=== PATIENT | male | born 1990 | race Native Hawaiian/Other Pacific Islander ===

== ENCOUNTER 2022-08-29 16:46 | Emergency (ER) | payer SELFPAY ==
[2022-08-29] VITALS (7 sets, daily range): BP systolic 127; BP diastolic 99; PULSE 58–68; RESP 18; TEMP 36.2; O2SAT 99
--- NOTE | 2022-08-29 16:45 | RT.EKG_ITS ---
APPROVED REPORT Exam: Resting ECG Reason for Exam: passing out Patient Location: E HR:58 bpm ECG Measurements Heart Rate 58 AXIS WA 156 P 40 QRSd 86 QRS 36 QT 398 T 16 QTc 393 Conclusion Sinus bradycardia...rate< 60
--- NOTE | 2022-08-29 17:00 | DI.RAD_ITS ---
Exam(s) XR CHEST 2V PA LATERAL EXAM: XR CHEST 2V PA LATERAL CLINICAL HISTORY: shortness. TECHNIQUE: 2D digital imaging was performed. COMPARISON: No exams were available for comparison FINDINGS: 2 views: Heart size is normal. The mediastinum is not widened. Lungs are clear. No infiltrates nor pleural effusions. IMPRESSION: No acute pulmonary findings. DATA REPOSITORY: RADIATION DOSE DELIVERED:
[2022-08-29 17:27] LABS: Abs Immature Grans 0.03 10^3/uL (0.0-0.06); Absolute Basophil Count 0.05 10^3/uL (0.0-0.2); Absolute Lymphocyte Count 2.92 10^3/uL (1.2-3.4); Absolute Neutrophil Count 5.94 10^3/uL (1.2-6.7); Basophils % 0.5; HCT 43.9 % (40.0-50.0); HGB 14.9 g/dL (13.5-17.5); Immature Grans % 0.3; Lymphocytes % 29.7; MCH 30.1 pg (27.0-33.0); MCHC 33.9 % (32.0-36.0); MCV 89 fL (80-95); MPV 8.9 fL (8.0-11.0); Monocytes % 6.1; Neutrophils % 60.4; Platelet Count 278 10^3/uL (130-400); RBC 4.95 10^6/uL (4.36-5.78); RDW 13.6 % (11.8-14.1); RDW-SD 44.4 fL; WBC 9.84 10^3/uL (4.4-10.8)
[2022-08-29 17:51] LABS: ALT 30 U/L (16-63); AST 24 U/L (15-37); Albumin 3.8 g/dL (3.4-5.0); Alkaline Phosphatase 80 U/L (46-116); Anion Gap 6.6 mmol/L (3-11); BUN 10 mg/dL (7-18); Bilirubin, Total 0.6 mg/dL (0.2-1.0); CO2 27.4 mmol/L (21.0-32.0); CREATININE 0.8 mg/dL (0.70-1.30); Chloride 106 mmol/L (98-107); Estimated GFR 121.34 (mL/min/1.73m2); Glucose 89 mg/dL (74-106); Magnesium 2.1 mg/dL (1.8-2.4); Potassium 3.9 mmol/L (3.5-5.1); Sodium 140 mmol/L (136-145); TSH (W/Ref FT4) 0.65 uIU/mL (0.36-3.74); Total Protein 8.4 g/dL (6.4-8.2); Troponin I < 50 ng/L (<or=60)
[2022-08-29 17:58] LABS: D-Dimer 281 ng/mlFEU (<500)
--- NOTE | 2022-08-29 18:07 | DI.VRAD_ITS ---
PROCEDURE INFORMATION: Exam: XR Chest Exam date and time: 08/29/2022 5:44 PM Age: 32 years old Clinical indication: Shortness of breath TECHNIQUE: Imaging protocol: Radiologic exam of the chest. Views: 2 views. COMPARISON: No relevant prior studies available. FINDINGS: Lungs: Unremarkable. No consolidation. Pleural spaces: Unremarkable. No pleural effusion. No pneumothorax. Heart/Mediastinum: Unremarkable. No cardiomegaly. Bones/joints: Unremarkable. IMPRESSION: No acute findings. Dictated and Authenticated by: Valdo Esquivel MD. Ordering:JEFF Weinberg MD
--- NOTE | 2022-08-29 19:19 | ED.GENADUL_ITS ---
Discharge Plan Disposition Patient Disposition: Home Discharge Details Clinical Impression: Syncope, Abscess Primary Care Provider: None,None ED Provider: Sultana Barajas Home Meds and New Rx's Prescriptions: New doxycycline hyclate 100 mg capsule 100 mg PO Q12H 10 Days Qty: 20 0RF Continued albuterol sulfate 90 mcg/actuation Hfa Aerosol Inhaler 2 inh INHALATION PRN PRN Discharge Instructions Instructions: Syncope (ED), Abscess (ED) Additional Instructions: Please follow-up with a doctor at your earliest ability Take antibiotic as prescribed for the abscesses, this will also protect you from Lyme disease Return with spreading redness, fever, worsening pain, chest pain, shortness of breath just I think that probably Discharge Data Discharge Date/Time-TO BE ENTERED AT DEPARTURE: 08/29/22 18:28 Medical Decision Making 32-year-old male who presents status post syncopal event EKG does not show significant acute abnormality, no QTc prolongation, negative troponin, negative D-dimer, labs within normal limits Afebrile and nontoxic Chest x-ray without acute abnormality Reports symptomatic improvement We will place on doxycycline for tick exposure and numerous abscesses Denies IV drug use Observed for approximately 3 hours without obvious evidence of dysrhythmia Phillips syncope places patient at low risk HPI General Date/Time Provider Initiated Documentation: 08/29/22 17:06 . HPI Narrative: This 32-year-old male with history of asthma presents with report of likely syncopal event. He was reportedly removing a tick from his thigh and the next thing he remembered he was on the ground. He was standing when the event occurred. He denies any reported injuries from the event. Denies history of similar symptoms in the past. Denies any vision change. He had tunnel vision prior to the onset of symptoms. She denies any palpitations. denies any neck pain. Unsure as to how long the tick was attached. Denies illicit drug use today. Denies any seizure-like activity. Denies alcohol consumption. Related Data Home Medications Medication Instructions Recorded Confirmed albuterol sulfate 90 mcg/actuation 2 inh inhalation PRN PRN 08/29/22 08/29/22 aerosol inhaler doxycycline hyclate 100 mg capsule 100 mg PO Q12H 10 days #20 caps 08/29/22 Previous Rx's Medication Instructions Recorded doxycycline hyclate 100 mg capsule 100 mg PO Q12H 10 days #20 caps 08/29/22 Allergies Allergy/AdvReac Type Severity Reaction Status Date / Time No Known Allergies Allergy Unverified 08/29/22 16:49 General Stated Complaint: Dizzy/Sync OSMANY: 3 PFSH All Active Problems (Updated 08/29/22 @ 18:24 by EPIFANIO Charlton) Syncope (Chronic) Abscess (Acute) Social History Smoking/Tobacco Use Status: Current every day Tobacco Type: cigarettes Years smoked: 21 Smoking risk assessment performed?: Yes Alcohol Intake: former Drug use: Daily Substance use type: marijuana and crack/cocaine Details: marijiana: every day cocaine: 3x/week Do you feel safe at home: Yes Do you feel safe in your relationship?: Yes Exam Narrative Exam Narrative: Alert and oriented x4, no visible sign of trauma, pupils equal round reactive to light and accommodation No midline neck tenderness, no carotid bruit or pulsatile mass, lungs clear to auscultation bilaterally, cardiac rate rhythm regular, no murmur rub No pallor, fully alert and oriented x4, cranial nerves II through XII intact, ambulatory steady gait, strength and sensation intact distally Course Vital Signs Vital signs: Vital Signs Temperature 36.2 C L 08/29/22 16:45 Pulse 59 L 08/29/22 16:45 Respiratory Rate 18 08/29/22 16:45 Blood Pressure 127/99 H 08/29/22 16:45 Pulse Oximetry 99 08/29/22 16:45 Temperature 36.2 C L 08/29/22 16:45 Temperature Source Skin 08/29/22 16:45 Pulse 59 L 08/29/22 16:45 Pulse 58 L 08/29/22 18:20 Respiratory Rate 18 08/29/22 16:57 Respiratory Effort Normal 08/29/22 16:57 Respiratory Depth Normal 08/29/22 16:57 Respiratory Pattern Normal 08/29/22 16:57 Blood Pressure 127/99 H 08/29/22 16:45 Blood Pressure Position Sitting 08/29/22 16:45 Pulse Oximetry 99 08/29/22 16:45 Oxygen Delivery Method Room Air 08/29/22 16:45 Oxygen Flow Rate 0 08/29/22 16:45 Lab/Test Results Lab/Test Results: Laboratory Tests Range/Units 08/29/22 08/29/22 08/29/22 17:21 17:21 17:21 WBC (4.4-10.8) 10^3/uL 9.84 RBC (4.36-5.78) 10^6/uL 4.95 Hgb (13.5-17.5) g/dL 14.9 Hct (40.0-50.0) % 43.9 MCV (80-95) fL 89 MCH (27.0-33.0) pg 30.1 MCHC (32.0-36.0) % 33.9 RDW (11.8-14.1) % 13.6 Plt Count (130-400) 10^3/uL 278 MPV (8.0-11.0) fL 8.9 Immature Gran % 0.3 Neutrophils % 60.4 Lymphocytes % 29.7 Monocytes % 6.1 Eosinophils % 3.0 Basophils % 0.5 Nucleated RBC % (0.0-0.3) % 0.0 Absolute Neutrophils (1.2-6.7) 10^3/uL 5.94 Absolute Lymphocytes (1.2-3.4) 10^3/uL 2.92 Absolute Monocytes (0.1-0.8) 10^3/uL 0.60 Absolute Eosinophils (0.0-0.7) 10^3/uL 0.30 Absolute Basophils (0.0-0.2) 10^3/uL 0.05 D-Dimer (<500) ng/mlFEU 281 Sodium (136-145) mmol/L 140 Potassium (3.5-5.1) mmol/L 3.9 Chloride (98-107) mmol/L 106 Carbon Dioxide (21.0-32.0) mmol/L 27.4 Anion Gap (3-11) mmol/L 6.6 BUN (7-18) mg/dL 10 Creatinine (0.70-1.30) mg/dL 0.8 Est GFR (CKD-EPI 2020) (mL/min/1.73m2) 121.34 Glucose (74-106) mg/dL 89 Calcium (8.5-10.1) mg/dL 9.0 Magnesium (1.8-2.4) mg/dL 2.1 Total Bilirubin (0.2-1.0) mg/dL 0.6 AST (15-37) U/L 24 ALT (16-63) U/L 30 Alkaline Phosphatase (46-116) U/L 80 Troponin I (<or=60) ng/L < 50 Total Protein (6.4-8.2) g/dL 8.4 H Albumin (3.4-5.0) g/dL 3.8 TSH (0.36-3.74) uIU/mL 0.65 Range/Units 08/29/22 20:08 WBC (4.4-10.8) 10^3/uL RBC (4.36-5.78) 10^6/uL Hgb (13.5-17.5) g/dL Hct (40.0-50.0) % MCV (80-95) fL MCH (27.0-33.0) pg MCHC (32.0-36.0) % RDW (11.8-14.1) % Plt Count (130-400) 10^3/uL MPV (8.0-11.0) fL Immature Gran % Neutrophils % Lymphocytes % Monocytes % Eosinophils % Basophils % Nucleated RBC % (0.0-0.3) % Absolute Neutrophils (1.2-6.7) 10^3/uL Absolute Lymphocytes (1.2-3.4) 10^3/uL Absolute Monocytes (0.1-0.8) 10^3/uL Absolute Eosinophils (0.0-0.7) 10^3/uL Absolute Basophils (0.0-0.2) 10^3/uL D-Dimer (<500) ng/mlFEU Sodium (136-145) mmol/L Potassium (3.5-5.1) mmol/L Chloride (98-107) mmol/L Carbon Dioxide (21.0-32.0) mmol/L Anion Gap (3-11) mmol/L BUN (7-18) mg/dL Creatinine (0.70-1.30) mg/dL Est GFR (CKD-EPI 2020) (mL/min/1.73m2) Glucose (74-106) mg/dL Calcium (8.5-10.1) mg/dL Magnesium (1.8-2.4) mg/dL Total Bilirubin (0.2-1.0) mg/dL AST (15-37) U/L ALT (16-63) U/L Alkaline Phosphatase (46-116) U/L Troponin I (<or=60) ng/L Cancelled Total Protein (6.4-8.2) g/dL Albumin (3.4-5.0) g/dL TSH (0.36-3.74) uIU/mL
== END 2022-08-29 18:28 | disposition home or self-care (01) ==
PROVIDERS: Emergency Provider Physician Assistant
DX: R55 Syncope and collapse (principal); L02.419 Cutaneous abscess of limb, unspecified; J45.909 Unspecified asthma, uncomplicated
CPT/HCPCS: 80053; 93005; 99283; 71046; 83735; 84443; 84484; 85025; 85379; 93010; 99284

== ENCOUNTER 2022-09-13 04:07 | Emergency (ER) | payer SELFPAY ==
[2022-09-13] VITALS (10 sets, daily range): BP systolic 118–183; BP diastolic 50–142; PULSE 67–84; RESP 12–22; O2SAT 97–100
--- NOTE | 2022-09-13 04:00 | RT.EKG_ITS ---
APPROVED REPORT Exam: Resting ECG Reason for Exam: SOB Patient Location: E HR:75 bpm ECG Measurements Heart Rate 75 AXIS [place] 142 P 38 QRSd 89 QRS 44 QT 366 T 11 QTc 408 Conclusion Sinus rhythm...normal P axis, V-rate 60- 99. Sinus. Normal axis. No STEMI. I have reviewed and interpreted ECG and agree with software generated interpretation.
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
--- NOTE | 2022-09-13 04:30 | DI.CT_ITS ---
Exam(s) CT HEAD CERVICAL SPINE WO EXAM: CT HEAD CERVICAL SPINE WO CLINICAL HISTORY: fall with head injury, r/o intracranial inj/fx. TECHNIQUE: Imaging Protocol: Axial computed tomography images with coronal and sagittal reformatted images were created and reviewed COMPARISON: No exams were available for comparison FINDINGS: CT Head: Ventricles and Extra axial spaces: Normal in size and morphology for the patient's age. Hemorrhage: None. Cerebral parenchyma: Normal. Midline shift: None. Brainstem/Cerebellum: Normal. Calvarium: Normal. Visualized Paranasal sinuses/Mastoids: Clear. Soft Tissues: Unremarkable. CT Cervical Spine: Bones: No acute fracture or subluxation. 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 There is reversal of the normal cervical lordosis which may represent patient positioning or muscle s pasm. Status post mandibular fixation. Soft Tissues: Unremarkable. Lung Apices: Clear. IMPRESSION: 1. No acute intracranial process. 2. No acute fracture or subluxation in the cervical spine. RADIATION DOSE DELIVERED: 1,671mGy.cm Total DLP DATA REPOSITORY: All CT scans at this facility are submitted to the National Radiology Data Registry (NRDR) Dose Index Registry (DIR) with the [employer] ([employer]). RADIATION OPTIMIZATION: All CT scans at this facility use at least one of these dose optimization te chniques: automated exposure control; mA and/or kV adjustment per patient size (includes targeted exa ms where dose is matched to clinical indication); or iterative reconstruction.
--- NOTE | 2022-09-13 04:30 | DI.CT_ITS ---
Exam(s) CT CHEST/ABD/PEL W CT THORACIC LUMBAR SPINE REC EXAM: CT CHEST/ABD/PEL W and CT thoracic and lumbar spine recons CLINICAL HISTORY: fall, R rib inj/r/o fx/liver injury TECHNIQUE: Imaging Protocol: Axial computed tomography images with coronal and sagittal reformatted images were created and reviewed CONTRAST MATERIAL: Intravenous: Omnipaque 350 contrast volume:100 mL Oral: No COMPARISON: There are no priors for comparison. FINDINGS: CHEST: Tracheobronchial tree: Patent where visualized. There is a small right tracheal diverticulum. Pulmonary parenchyma: No consolidation or dominant measurable mass. No architectural distortion. Visualized thyroid gland: Unremarkable. Mediastinum and Ellen: No dominant adenopathy or fluid collection. The esophagus is unremarkable. Pleura: No effusion or pneumothorax. Heart: The heart is not dilated. No coronary artery calcifications are seen. No pericardial effusion. Pulmonary arteries: No large central pulmonary embolus is seen. There is poor opacification of the s egmental and subsegmental pulmonary arteries. Aorta: Thoracic aorta non-dilated. No evidence of thoracic aortic injury. Lymph nodes: Within normal limits. Soft tissues: Mild gynecomastia. Bones:Within normal limits for the patient's age. CT thoracic spine recons: Unremarkable. No definite acute fracture or subluxation is seen in the tho racic spine. ABDOMEN: Liver: Normal density. No measurable mass. Portal, Superior Mesenteric, and Splenic Veins: Unremarkable. Gallbladder and Biliary Tract: No radiodense calculus or dilation. Pancreas: Normal density, no abnormal calcifications or inflammatory process. Spleen: Normal. Adrenals: No masses seen. Kidneys: Normal size, contour and axis. No radiodense stones or obstructive uropathy. No masses seen. Abdominal Aorta: Abdominal portion non-dilated. Bowel: No obstruction or bowel wall thickening. No evidence of appendicitis. Peritoneal Cavity: No ascites, collection or mesenteric inflammatory response. No free air. Lymph Nodes: Within normal limits. Bones: Within normal limits for the patient's age. Soft Tissues: Small fat containing umbilical hernia. CT lumbar spine recons: No acute fracture or subluxation is present. Discal calcification is seen at L4-L5. Degenerative changes are seen at the L4-5 disc level. PELVIS: Bladder: Symmetric distention, no gross wall thickening. Reproductive Organs: Unremarkable as visualized. Lymph Nodes: Within normal limits. Bones: Within normal limits. IMPRESSION: 1. Unremarkable CT scan of the abdomen and pelvis. 2. Unremarkable CT scan of the chest. 3. No acute fracture or subluxation is seen in the thoracic or lumbar spine. RADIATION DOSE DELIVERED: Total DLP DATA REPOSITORY: All CT scans at this facility are submitted to the National Radiology Data Registry (NRDR) Dose Index Registry (DIR) with the [employer] (ACR). RADIATION OPTIMIZATION: All CT scans at this facility use at least one of these dose optimization te chniques: automated exposure control; mA and/or kV adjustment per patient size (includes targeted exa ms where dose is matched to clinical indication); or iterative reconstruction.
[2022-09-13] MEDS: Normal Saline 1,000 ML 1000 ML IV (04:37)
[2022-09-13] MEDS: ACETAMINOPHEN 1,000 MG/100 ML BTL 400 MG IVPB (04:38)
[2022-09-13 04:52] LABS: Abs Immature Grans 0.06 10^3/uL (0.0-0.06); Absolute Basophil Count 0.06 10^3/uL (0.0-0.2); Absolute Lymphocyte Count 4.96 10^3/uL (1.2-3.4); Absolute Monocyte Count 0.95 10^3/uL (0.1-0.8); Basophils % 0.3; Eosinophils % 1.1; HCT 47.1 % (40.0-50.0); HGB 16.2 g/dL (13.5-17.5); Immature Grans % 0.3; Lymphocytes % 24.5; MCH 30.1 pg (27.0-33.0); MCHC 34.4 % (32.0-36.0); MCV 88 fL (80-95); MPV 9.3 fL (8.0-11.0); Monocytes % 4.7; Neutrophils % 69.1; Platelet Count 299 10^3/uL (130-400); RBC 5.38 10^6/uL (4.36-5.78); RDW 13.2 % (11.8-14.1); RDW-SD 42.6 fL; WBC 20.26 10^3/uL (4.4-10.8)
[2022-09-13 04:54] LABS: Absolute Eosinophil Count 0.22 10^3/uL (0.0-0.7)
[2022-09-13] MEDS: Normal Saline - Diluent 50 ML VIAL IJ (05:10)
[2022-09-13] MEDS: Omnipaque 350 MG/ML 100 ML BTL IJ (05:10)
[2022-09-13 05:15] LABS: ALT 27 U/L (16-63); AST 22 U/L (15-37); Albumin 4.3 g/dL (3.4-5.0); Alkaline Phosphatase 94 U/L (46-116); BUN 11 mg/dL (7-18); Bilirubin, Total 0.6 mg/dL (0.2-1.0); Calcium 9.4 mg/dL (8.5-10.1); Chloride 105 mmol/L (98-107); Estimated GFR 103.19 (mL/min/1.73m2); Glucose 93 mg/dL (74-106); Potassium 3.6 mmol/L (3.5-5.1); Sodium 141 mmol/L (136-145); Total Protein 9.5 g/dL (6.4-8.2); Troponin I < 50 ng/L (<or=60)
--- NOTE | 2022-09-13 05:25 | DI.VRAD_ITS ---
PROCEDURE INFORMATION: Exam: CT Head Without Contrast Exam date and time: 09/13/2022 4:51 AM Age: 32 years old Clinical indication: Injury or trauma; Other: Fall with head injury, R/O intracranial inj/fx TECHNIQUE: Imaging protocol: Computed tomography of the head without contrast. COMPARISON: No relevant prior studies available. FINDINGS: Brain: No intracranial hemorrhage appreciated. No significant focal mass effect or significant midline shift. Cerebral ventricles: No disproportionate ventriculomegaly. Paranasal sinuses: No air-fluid levels seen. Mastoid air cells: No mastoid effusion. Bones/joints: No acute cranial vault fracture seen. Soft tissues: No acute findings. IMPRESSION: 1. No acute intracranial abnormality is appreciated. 2. Additional studies dictated separately. PROCEDURE INFORMATION: Exam: CT Cervical Spine Without Contrast Exam date and time: 09/13/2022 4:51 AM Age: 32 years old Clinical indication: Injury or trauma; Other: Fall with head injury, R/O intracranial inj/fx TECHNIQUE: Imaging protocol: Computed tomography of the cervical spine without contrast. COMPARISON: No relevant prior studies are available for comparison. FINDINGS: Bones/joints: No acute cervical spine fracture identified. 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 Reversal of the normal cervical lordosis may reflect positioning or muscle spasm; correlate clinically. Status post internal mandibular fixation. Lungs: No acute findings. Lymph nodes: Bilateral cervical lymph nodes. Soft tissues: See Bones/joints finding. IMPRESSION: 1. No acute osseous injury appreciated in the cervical spine. 2. Additional studies dictated separately. Dictated and Authenticated by: Tona Perales MD. Ordering:CHANDANA Majano MD
--- NOTE | 2022-09-13 05:35 | DI.VRAD_ITS ---
PROCEDURE INFORMATION: Exam: CT Chest With Contrast; Diagnostic Exam date and time: 09/13/2022 4:58 AM Age: 32 years old Clinical indication: Pain; Other: Fall, R rib inj/r/o fx/liver injury TECHNIQUE: Imaging protocol: Diagnostic computed tomography of the chest with contrast. Contrast material: OMNIPAQUE 350; Contrast volume: 100 ml; Contrast route: INTRAVENOUS (IV); COMPARISON: CR XR CHEST 2V PA LATERAL 08/29/2022 5:44 PM FINDINGS: Trachea: 7 mm right posterior tracheal diverticulum, image 76 of series 8. Lungs: No pulmonary laceration, contusion, or consolidation. Pleural spaces: No pleural effusion or pneumothorax. Heart: Normal sized heart. Lymph nodes: No pathologically enlarged mediastinal or hilar lymph nodes. Vasculature: No thoracic aortic aneurysm or dissection. Limited pulmonary artery enhancement with a density of only 148 Hounsfield units obtained over the pulmonary trunk. Within the limits of the exam, no pulmonary embolism identified. Small and distal pulmonary arteries partially obscured by artifact, not well enhanced, and not well evaluated. Bones/joints: No acute fracture seen among the bones of the chest. Soft tissues: No gross soft tissue mass or fluid collection seen in the chest wall. IMPRESSION: No acute visceral or bony injury seen in the chest. PROCEDURE INFORMATION: Exam: CT Abdomen And Pelvis With Contrast Exam date and time: 09/13/2022 4:58 AM Age: 32 years old Clinical indication: Pain; Other: Fall, R rib inj/r/o fx/liver injury TECHNIQUE: Imaging protocol: Computed tomography of the abdomen and pelvis with contrast. Contrast material: OMNIPAQUE 350; Contrast volume: 100 ml; Contrast route: INTRAVENOUS (IV); COMPARISON: CR XR CHEST 2V PA LATERAL 08/29/2022 5:44 PM FINDINGS: Liver: Normal appearing liver. Gallbladder and bile ducts: Normal appearing gallbladder. No calcified gallstones. No biliary dilatation. Pancreas: Normal appearing pancreas. Spleen: Normal appearing spleen. Adrenal glands: Normal appearing adrenal glands. Kidneys and ureters: Normal appearing kidneys. No hydronephrosis. Stomach and bowel: No oral contrast. Stomach partially decompressed. No small bowel dilatation to suggest obstruction. Normal-appearing colon. No evidence of diverticulitis or colitis. Appendix: Normal appendix. Intraperitoneal space: No gross ascites or free air. Vasculature: Normal caliber abdominal aorta. Lymph nodes: Scattered small mesenteric lymph nodes, nonspecific. Clustered small bilateral groin nodes, nonspecific. Urinary bladder: Normal appearing urinary bladder. Reproductive: Normal-appearing prostate gland and seminal vesicles. Bones/joints: No acute fracture seen among the bones of the abdomen or pelvis. Soft tissues: Small fat containing ventral hernia at the umbilicus. IMPRESSION: No acute visceral or bony injury seen in the abdomen or pelvis. Dictated and Authenticated by: Reyes Lorenz MD. Ordering:CHANDANA Majano MD
--- NOTE | 2022-09-13 05:44 | DI.VRAD_ITS ---
PROCEDURE INFORMATION: Exam: CT Thoracic Spine Without Contrast Exam date and time: 09/13/2022 4:58 AM Age: 32 years old Clinical indication: Injury or trauma; Fall; Blunt trauma (contusions or hematomas); Other: R/O FX TECHNIQUE: Imaging protocol: Computed tomography of the thoracic spine without contrast. COMPARISON: CT HEAD CERVICAL SPINE WO 09/13/2022 4:51 AM FINDINGS: Bones/joints: No thoracic fracture or malalignment is seen. No thoracic spinal stenosis is demonstrated. Soft tissues: No gross superficial soft tissue mass or fluid collection is seen in the thoracic region. Tracheobronchial tree: 7 mm right posterior tracheal diverticulum redemonstrated. IMPRESSION: No acute fracture or malalignment seen in the thoracic spine. PROCEDURE INFORMATION: Exam: CT Lumbar Spine Without Contrast Exam date and time: 09/13/2022 4:58 AM Age: 32 years old Clinical indication: Injury or trauma; Fall; Blunt trauma (contusions or hematomas); Other: R/O FX TECHNIQUE: Imaging protocol: Computed tomography of the lumbar spine without contrast. COMPARISON: No relevant prior studies available. FINDINGS: Bones/joints: No acute lumbar fracture or malalignment is seen. There is a well corticated defect through the left L4 transverse process with an appearance suspicious for an old fracture or an unusual developmental appearance. L1-L2: No focal disc herniation. No significant central canal narrowing or neural foraminal narrowing. L2-L3: Disc height preserved. No focal disc herniation. No significant central canal narrowing or neural foraminal narrowing. L3-L4: Disc height preserved. No focal disc herniation. No significant central canal narrowing or neural foraminal narrowing. L4-L5: Loss of disc height with a large left lateral disc bulge with calcification along the disc margin and associated osteophytic ridging. No significant central canal narrowing. Moderate right-sided foraminal narrowing. Moderate-severe left-sided foraminal narrowing with disc material abutting the left L4 nerve root. L5-S1: Disc height preserved. No focal disc herniation. No significant central canal narrowing. Moderate bilateral foraminal narrowing. Soft tissues: Unremarkable. IMPRESSION: No acute lumbar fracture or malalignment is seen. Dictated and Authenticated by: Reyes Lorenz MD. Ordering:CHANDANA Majano MD
--- NOTE | 2022-09-13 05:48 | NUR.NOTE ---
Pt placed on care management referral list to establish care and f/u for neck and shoulder pain per Gretel Aguillon
[2022-09-13 05:50] LABS: Bilirubin Negative (Negative); Blood Negative (Negative); Clarity Clear (Clear); Glucose Negative (Negative); Ketones Negative (Negative); Leukocyte Esterase Negative (Negative); Nitrite Negative (Negative); Specific Gravity 1.015 (1.005-1.025); Urobilinogen 0.2 mg/dL (Up to 0.2)
[2022-09-13 06:00] LABS: *AMPHETAMINES SCREEN URINE Negative (Negative); *BARBITURATES SCREEN URINE Negative (Negative); *BENZODIAZEPINES SCREEN URINE Negative (Negative); Cannabinoids THC Positive (Negative); Cocaine Screen,Urine Positive (Negative); METHADONE URINE SCREEN Negative (Negative); OPIATES URINE SCREEN Negative (Negative)
[2022-09-13 06:04] LABS: Tricyclic Antidepressants Negative (Negative)
[2022-09-13] MEDS: LORazepam 0.5 MG TAB 1 MG PO (06:23)
[2022-09-13] MEDS: Ondansetron O.D.T. 4 MG TABEF, 3 TABS/BTL PO (06:31)
== END 2022-09-13 06:29 | disposition home or self-care (01) ==
PROVIDERS: Emergency Provider Physician Assistant
DX: F14.10 Cocaine abuse, uncomplicated (principal); R11.2 Nausea with vomiting, unspecified; R56.9 Unspecified convulsions; R06.02 Shortness of breath; D72.829 Elevated white blood cell count, unspecified; S00.511A Abrasion of lip, initial encounter; Y04.1XXA Assault by human bite, initial encounter; F17.210 Nicotine dependence, cigarettes, uncomplicated; Z23 Encounter for immunization
CPT/HCPCS: 36415; 74177; 80053; 80307; 90471; 93005; 96365; 96375; 99285; 70450; 71260; 72125; 81003; 83735; 84484; 85025; 93010; 99284; J0131; J3490

== ENCOUNTER 2022-09-28 11:19 | Emergency (ER) | payer SELFPAY ==
[2022-09-28 11:27] VITALS: BP 122/81; PULSE 71; RESP 20; TEMP 37.2; O2SAT 98
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
--- NOTE | 2022-09-28 12:18 | NUR.NOTE ---
Nursing Note: care management referral for [facility] for new pt appt for med refill
[2022-09-28] MEDS: Albuterol HFA 8 GM 60 PUFF INH IH (12:24)
== END 2022-09-28 12:26 | disposition home or self-care (01) ==
PROVIDERS: Emergency Provider Physician Assistant
DX: Z76.0 Encounter for issue of repeat prescription (principal); R56.9 Unspecified convulsions; F41.9 Anxiety disorder, unspecified; F32.9 Major depressive disorder, single episode, unspecified; F43.10 Post-traumatic stress disorder, unspecified; J45.909 Unspecified asthma, uncomplicated; Z91.138 Patient's unintentional underdosing of medication regimen for other reason
CPT/HCPCS: 99281; 99283; 99282

== ENCOUNTER 2022-10-13 12:05 | Emergency (ER) | payer SELFPAY ==
[2022-10-13 12:14] VITALS: BP 137/83; PULSE 72; RESP 18; O2SAT 98
--- NOTE | 2022-10-13 14:15 | W.EDPROG ---
Date of service: 10/13/22 Time of Service: 14:15 Medical Decision Making I went to perform initial evaluation on this patient and he was not in assigned room. Patients who were in the waiting room nearby noted he had eloped stating time is money. I did not evaluate this patient. Discharge Plan Discharge Details Chief Complaint: Nausea/Vomit/Diar Primary Care Provider: Mary,Local ED Provider: Alexander Sandhu Home Meds and New Rx's Prescriptions: No Action alprazolam [Xanax] 2 mg Tablet 2 mg PO QHS divalproex [Depakote] 500 mg tablet,delayed release (DR/EC) 500 mg PO TID Qty: 90 0RF albuterol sulfate 90 mcg/actuation Hfa Aerosol Inhaler 2 inh INHALATION PRN PRN divalproex [Depakote] 500 mg tablet,delayed release (DR/EC) 500 mg PO BID Qty: 60 0RF albuterol sulfate 90 mcg/actuation HFA aerosol inhaler 2 puff inhalation Q6H PRN (Reason: shortness of breath or wheezing) Qty: 8.5 0RF
--- NOTE | 2022-10-13 14:16 | NUR.NOTE ---
Patient left without being seen, he stated that time was money to the registration office before leaving. CLB
--- NOTE | 2022-10-13 14:16 | NUR.NOTE ---
Nursing Note: Access called stating patient took his bracelet off and to tell the doctor he was leaving.
== END 2022-10-13 14:16 | disposition left against medical advice (07) ==
PROVIDERS: Emergency Provider Student in an Organized Health Care Education/Training Program
DX: R11.2 Nausea with vomiting, unspecified (principal); Z53.21 Procedure and treatment not carried out due to patient leaving prior to being seen by health care provider
CPT/HCPCS: 36416; 82962; 99282

== ENCOUNTER 2022-11-05 12:02 | Inpatient (IN) | payer SELFPAY ==
[2022-11-05] VITALS (9 sets, daily range): BP systolic 113–123; BP diastolic 56–92; PULSE 64–81; RESP 15–28; TEMP 36.5–37.1; O2SAT 97–100; BMI 28.5
[2022-11-05 12:55] LABS: Abs Immature Grans 0.06 10^3/uL (0.0-0.06); Absolute Basophil Count 0.05 10^3/uL (0.0-0.2); Absolute Eosinophil Count 0.24 10^3/uL (0.0-0.7); Absolute Lymphocyte Count 2.71 10^3/uL (1.2-3.4); Basophils % 0.3; Eosinophils % 1.5; HCT 41.4 % (40.0-50.0); HGB 14.3 g/dL (13.5-17.5); Immature Grans % 0.4; Lymphocytes % 16.9; MCH 30.1 pg (27.0-33.0); MCHC 34.5 % (32.0-36.0); MCV 87 fL (80-95); Neutrophils % 75.9; Platelet Count 270 10^3/uL (130-400); RBC 4.75 10^6/uL (4.36-5.78); RDW 13.2 % (11.8-14.1); RDW-SD 42.2 fL; WBC 16.05 10^3/uL (4.4-10.8)
[2022-11-05 12:58] LABS: Absolute Neutrophil Count 12.18 10^3/uL (1.2-6.7)
[2022-11-05] MEDS: PIPERACILLIN/TAZO 3.375 GM in Normal Saline 50 ML IVPB ×2 (13:05→20:59)
[2022-11-05 13:30] LABS: ALT 23 U/L (16-63); AST 16 U/L (15-37); Albumin 3.5 g/dL (3.4-5.0); Alkaline Phosphatase 81 U/L (46-116); Anion Gap 7.7 mmol/L (3-11); BUN 16 mg/dL (7-18); Bilirubin, Total 0.7 mg/dL (0.2-1.0); CO2 27.3 mmol/L (21.0-32.0); CREATININE 1.1 mg/dL (0.70-1.30); Calcium 8.8 mg/dL (8.5-10.1); Chloride 104 mmol/L (98-107); Estimated GFR 92.04 (mL/min/1.73m2); Glucose 131 mg/dL (74-106); Potassium 3.7 mmol/L (3.5-5.1); Sodium 139 mmol/L (136-145); Total Protein 8.1 g/dL (6.4-8.2)
[2022-11-05] MEDS: Normal Saline - Diluent 50 ML VIAL IJ (13:47)
[2022-11-05] MEDS: Normal Saline Flush 10 ML SYR IJ (13:49)
[2022-11-05] MEDS: Omnipaque 350 MG/ML 500 ML BTL-Imaging package 100 ML IJ (13:50)
--- NOTE | 2022-11-05 13:59 | DI.CT_ITS ---
Exam(s) CT ABDOMEN PELVIS W EXAM: CT ABDOMEN PELVIS W CLINICAL HISTORY: perirectal abscess, cellulitis. TECHNIQUE: Imaging Protocol: Axial computed tomography images with coronal and sagittal reformatted images were created and reviewed CONTRAST MATERIAL: Intravenous: Omnipaque 350 Contrast volume:100 ml Oral: / no COMPARISON: CT CT CHEST/ABD/PEL W from 09/13/2022 FINDINGS: ABDOMEN:PELVIS: Lung Bases: Normal where visualized. Liver: Normal density. No measurable mass. Gallbladder and biliary tract: No radiodense calculus or dilation. Pancreas: Normal density, no abnormal calcifications or inflammatory process. Spleen: Normal. Kidneys: Normal size, contour and axis. No radiodense stones or obstructive uropathy. No suspicious m asses seen. Adrenal glands: No masses seen. Abdominal Aorta: Abdominal portion non-dilated. Soft tissues: Asymmetric thickening of the skin and subcutaneous fat in the inferomedial left gluteal fold. No visible Sandy rectal abscess. Bladder: No gross wall thickening. No calculi.No focal mass. Bowel: No obstruction. No bowel wall thickening. Appendix normal. No perirectal abscess visible. Peritoneal cavity: No ascites, collection or mesenteric inflammatory response. Bones: Unremarkable for age. Reproductive organs: Within normal limits. Lymph nodes: Mildly enlarged bilateral inguinal lymph nodes consistent with reactive lymph nodes. Impression: left inferomedial gluteal fold cellulitis. No perirectal abscess visible. RADIATION DOSE DELIVERED: 774.78mGy.cm Total DLP DATA REPOSITORY: All CT scans at this facility are submitted to the National Radiology Data Registry (NRDR) Dose Index Registry (DIR) with the [employer] (ACR). RADIATION OPTIMIZATION: All CT scans at this facility use at least one of these dose optimization te chniques: automated exposure control; mA and/or kV adjustment per patient size (includes targeted exa ms where dose is matched to clinical indication); or iterative reconstruction.
[2022-11-05] MEDS: Normal Saline 1,000 ML 1000 ML IV (14:41)
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
[2022-11-05] MEDS: Ketorolac 15 MG/ML VIAL IVP ×2 (15:12→18:13)
[2022-11-05] MEDS: oxyCODONE 5 mg/Acetaminophen 325 mg TAB 1 TAB PO (15:13)
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
[2022-11-05 15:34] LABS: Lab Add On Test DONE
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
[2022-11-05 15:48] LABS: VALPROIC ACID < 3 ug/mL
[2022-11-05 15:53] LABS: Hemoglobin A1C 5.4 % (<5.7)
[2022-11-05] MEDS: Lactated Ringers 1,000 ML 30 ML IV (16:00)
--- NOTE | 2022-11-05 16:00 | ROE_ITS ---
Date of service: 11/05/22 Time of Service: 16:00 Operative Note Operative Note DATE OF PROCEDURE: 11/05/22 PRE-OP DIAGNOSIS: abscess left buttock POST-OP DIAGNOSIS: same PROCEDURE: incision and drainage SURGEON: Pita Peralta ANESTHESIA TYPE: General LMA/ETT Refer to Anesthesia Record ESTIMATED BLOOD LOSS: 5 PATHOLOGY: none sent COMPLICATIONS: None Patient was transported to: PACU Patient's condition: stable Procedure Description: Patient has abscess on his left buttock that is about 4 x 4 cm. Patient has a history of soft tissue abscesses. He says that he is diabetic and does not have any his medications. He does not know if he has ever had MRSA in the past. He has multiple scars from what appeared to be soft tissue infections in the past. He denies any history of MRSA. Informed consent is obtained explaining risks and benefits of the procedure including but not limited to: Bleeding, infection, pneumonia, blood clots,, locations from anesthesia, Need to heal by secondary intent which will involve packing and dressing changes. Patient is homeless. Patient is brought to the operative suite. He received antibiotics in the OR. He is given vancomycin to cover for MRSA. Anesthesia is administered per the department of anesthesia. Patient is then placed in the prone position with all bony surfaces padded. Timeout is per formed. Elliptical incision is made over the abscess- 1x1cm: removing all the necrotic tissue. Cultures are taken. About a third of a cup of creamy purulent discharge drainage is removed. wound: [id number] w/ purulent drainage This is irrigated with 1500 cc of drainage. Curette is used to remove all nonviable tissue. Cautery was used to provide hemostasis. The wound is then packed with plain gauze. Sterile dressings are applied. Patient was woken back up and taken to recovery. Patient tolerated the procedure well without complication.
[2022-11-05] MEDS: VANCOMYCIN/WATER (PEG) 1 GM/200 ML BAG IV ×2 (16:13→20:56)
[2022-11-05] MEDS: Bupivacaine 0.25% Pres-Free 30 ML VIAL (16:25)
--- NOTE | 2022-11-05 17:00 | W.ANESPOSTOP ---
Postoperative Evaluation Date, Time and Location Date Performed: 11/05/22 Time Performed: 17:00 Patient Location: PACU Vital Signs Most Recent Imported Vital Signs: Most Recent Vital Signs Temp Pulse Resp BP Pulse Ox 36.7 C 66 19 123/78 100 11/05/22 16:53 11/05/22 16:53 11/05/22 16:53 11/05/22 16:48 11/05/22 16:53 Pain Score Most Recent Pain Score: Most Recent Pain Score Pain Level 10 11/05/22 15:13 Assessment Mental Status: Awake (Alert & Oriented to Patient Baseline) Airway and Respiratory Function: Patent airway with normal (patient baseline) respiratory exam Cardiovascular Function: Hemodynamically Stable Hydration Status: Adequately Hydrated Nausea & Vomiting: No Nausea or Vomiting Pain: Pain is Moderate or Severe Postoperative Pain Management: Pain being addressed with medication and Ongoing pain, patient will be managed as an inpatient Peripheral Nerve Block: Patient did not receive a nerve block
[2022-11-05] MEDS: fentaNYL 100 MCG/2 ML VIAL IVP (17:09)
[2022-11-05] MEDS: Acetaminophen 500 MG TAB 1000 MG PO (18:13)
[2022-11-05] MEDS: Normal Saline Flush 10 ML SYR IVP (18:14)
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
[2022-11-05] MEDS: Enoxaparin 40 MG/0.4 ML SYR SC (20:51)
[2022-11-05] MEDS: Gabapentin 300 MG CAP 100 MG PO (20:52)
[2022-11-05] MEDS: oxyCODONE 5 MG TAB PO (20:52)
[2022-11-05] MEDS: MORPHine 2 MG/ML SYR IVP (21:53)
[2022-11-06] MEDS: Ketorolac 15 MG/ML VIAL IVP ×3 (00:02→17:19)
[2022-11-06] MEDS: Acetaminophen 500 MG TAB 1000 MG PO ×3 (00:03→17:19)
[2022-11-06 00:04] VITALS: BP 96/57; PULSE 55; RESP 18; TEMP 36; O2SAT 94
[2022-11-06] MEDS: PIPERACILLIN/TAZO 3.375 GM in Normal Saline 50 ML IVPB ×4 (01:51→20:24)
[2022-11-06 05:58] VITALS: BP 109/72; PULSE 53; RESP 20; O2SAT 97
[2022-11-06] MEDS: oxyCODONE 5 MG TAB PO ×3 (06:02→20:21)
[2022-11-06 06:57] LABS: Abs Immature Grans 0.07 10^3/uL (0.0-0.06); Absolute Basophil Count 0.06 10^3/uL (0.0-0.2); Absolute Eosinophil Count 0.28 10^3/uL (0.0-0.7); Absolute Lymphocyte Count 3.09 10^3/uL (1.2-3.4); Absolute Neutrophil Count 8.03 10^3/uL (1.2-6.7); Basophils % 0.5; Eosinophils % 2.3; HGB 13.2 g/dL (13.5-17.5); Immature Grans % 0.6; Lymphocytes % 24.9; MCH 29.9 pg (27.0-33.0); MCHC 33.8 % (32.0-36.0); MCV 88 fL (80-95); MPV 9.3 fL (8.0-11.0); Monocytes % 6.9; Neutrophils % 64.8; Platelet Count 258 10^3/uL (130-400); RBC 4.41 10^6/uL (4.36-5.78); RDW 13.3 % (11.8-14.1); RDW-SD 43.7 fL; WBC 12.39 10^3/uL (4.4-10.8)
[2022-11-06 07:02] LABS: Absolute Monocyte Count 0.85 10^3/uL (0.1-0.8)
[2022-11-06 07:17] LABS: Vancomycin, Trough 8.9 ug/mL (10.0-20.0)
[2022-11-06 07:24] VITALS: BP 114/64; PULSE 62; RESP 16; TEMP 37; O2SAT 98
[2022-11-06 07:26] LABS: Hemoglobin A1C 5.4 % (<5.7)
[2022-11-06] MEDS: MORPHine 2 MG/ML SYR IVP ×2 (07:43→17:19)
[2022-11-06] MEDS: Gabapentin 300 MG CAP 100 MG PO ×2 (07:44→14:04)
[2022-11-06] MEDS: Normal Saline Flush 10 ML SYR IJ ×3 (07:45→17:20)
[2022-11-06] MEDS: Nicotine 21 MG/24 HR PATCH TD (07:45)
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
[2022-11-06] MEDS: VANCOMYCIN/WATER (PEG) 1 GM/200 ML BAG IV ×2 (09:48→20:31)
--- NOTE | 2022-11-06 12:53 | W.PM.PROGNOT ---
Date of Service Date of service: 11/06/22 Time of Service: 12:53 Assessment and Plan Assessment and plan (1) Abscess of buttock, left: Status: Acute Assessment and plan: We will continue with the vancomycin for now, repeat the white blood cell count tomorrow. He seems to be improving after drainage. There is no culture data available yet. His disposition will be complicated by the fact that he is homeless, and has no one to help assist with wound care. He has no access to running water. Subjective Subjective Interval history since last seen: He was feeling a little better after incision and drainage of the buttock abscess. He still has a fair amount of pain, but it is improved from when he first came in. It is relieved when he needs able to unload that buttock. He has had no fevers overnight, and his white blood cell counts improved Exam Skin Other: The wound is clean, and there is minimal surrounding erythema. It is quite tender. There is no purulence. Objective Last Vital Signs Temp 98.6 F 11/06/22 07:24 Pulse 62 11/06/22 07:24 Resp 16 11/06/22 07:24 BP 114/64 11/06/22 07:24 Pulse Ox 98 11/06/22 07:24 Laboratory Results - last 24 hr 11/05/22 11/05/22 11/05/22 12:45 12:45 12:45 WBC 16.05 H RBC 4.75 Hgb 14.3 Hct 41.4 MCV 87 MCH 30.1 MCHC 34.5 RDW 13.2 Plt Count 270 MPV 9.0 Immature Gran % 0.4 Neutrophils % 75.9 Lymphocytes % 16.9 Monocytes % 5.0 Eosinophils % 1.5 Basophils % 0.3 Nucleated RBC % 0.0 Absolute Neutrophils 12.18 H Absolute Lymphocytes 2.71 Absolute Monocytes 0.80 Absolute Eosinophils 0.24 Absolute Basophils 0.05 Sodium 139 Potassium 3.7 Chloride 104 Carbon Dioxide 27.3 Anion Gap 7.7 BUN 16 Creatinine 1.1 Est GFR (CKD-EPI 2020) 92.04 Glucose 131 H Hemoglobin A1c Calcium 8.8 Total Bilirubin 0.7 AST 16 ALT 23 Alkaline Phosphatase 81 Total Protein 8.1 Albumin 3.5 Vancomycin Trough Valproic Acid < 3 Add-On Test Request 11/05/22 11/05/22 11/06/22 12:45 12:45 06:35 WBC RBC Hgb Hct MCV MCH MCHC RDW Plt Count MPV Immature Gran % Neutrophils % Lymphocytes % Monocytes % Eosinophils % Basophils % Nucleated RBC % Absolute Neutrophils Absolute Lymphocytes Absolute Monocytes Absolute Eosinophils Absolute Basophils Sodium Potassium Chloride Carbon Dioxide Anion Gap BUN Creatinine Est GFR (CKD-EPI 2020) Glucose Hemoglobin A1c 5.4 Calcium Total Bilirubin AST ALT Alkaline Phosphatase Total Protein Albumin Vancomycin Trough 8.9 L Valproic Acid Add-On Test Request DONE 11/06/22 11/06/22 11/06/22 06:35 06:35 16:00 WBC 12.39 H RBC 4.41 Hgb 13.2 L Hct 39.0 L MCV 88 MCH 29.9 MCHC 33.8 RDW 13.3 Plt Count 258 MPV 9.3 Immature Gran % 0.6 Neutrophils % 64.8 Lymphocytes % 24.9 Monocytes % 6.9 Eosinophils % 2.3 Basophils % 0.5 Nucleated RBC % 0.0 Absolute Neutrophils 8.03 H Absolute Lymphocytes 3.09 Absolute Monocytes 0.85 H Absolute Eosinophils 0.28 Absolute Basophils 0.06 Sodium Potassium Chloride Carbon Dioxide Anion Gap BUN Creatinine Est GFR (CKD-EPI 2020) Glucose Hemoglobin A1c 5.4 Calcium Total Bilirubin AST ALT Alkaline Phosphatase Total Protein Albumin Vancomycin Trough Cancelled Valproic Acid Add-On Test Request Time Spent with Patient Time Spent with Patient: <25 minutes Time was spent: ordering medications,tests, procedures, indepentently interpreting results, counseling the patient and care coordination
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
[2022-11-06 15:40] VITALS: BP 117/70; PULSE 63; RESP 20; TEMP 36.5; O2SAT 95
[2022-11-06 19:47] LABS: Vancomycin, Trough 7.3 ug/mL (10.0-20.0)
[2022-11-06] MEDS: Enoxaparin 40 MG/0.4 ML SYR SC (20:23)
[2022-11-06] MEDS: Gabapentin 100 MG CAP PO (21:12)
[2022-11-07] MEDS: Acetaminophen 500 MG TAB 1000 MG PO ×3 (00:12→17:48)
[2022-11-07] MEDS: Ketorolac 15 MG/ML VIAL IVP ×3 (00:13→17:48)
[2022-11-07] MEDS: PIPERACILLIN/TAZO 3.375 GM in Normal Saline 50 ML IVPB ×2 (02:06→09:11)
[2022-11-07 03:48] VITALS: BP 133/90; PULSE 63; RESP 20; TEMP 36; O2SAT 98
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
[2022-11-07 08:00] VITALS: BP 116/76; PULSE 72; RESP 16; O2SAT 99
[2022-11-07 08:04] LABS: HCT 37.5 % (40.0-50.0); HGB 12.8 g/dL (13.5-17.5); MCH 30.3 pg (27.0-33.0); MCHC 34.1 % (32.0-36.0); MCV 89 fL (80-95); MPV 9.2 fL (8.0-11.0); Platelet Count 242 10^3/uL (130-400); RBC 4.23 10^6/uL (4.36-5.78); RDW 13.5 % (11.8-14.1); RDW-SD 44.3 fL; WBC 11.03 10^3/uL (4.4-10.8)
[2022-11-07] MEDS: Gabapentin 100 MG CAP PO ×3 (09:10→19:27)
[2022-11-07] MEDS: oxyCODONE 5 MG TAB PO ×3 (09:10→21:11)
[2022-11-07] MEDS: Nicotine 21 MG/24 HR PATCH TD (09:10)
[2022-11-07] MEDS: VANCOMYCIN/WATER (PEG) 1 GM/200 ML BAG IV (09:11)
[2022-11-07] MEDS: Normal Saline Flush 10 ML SYR IJ ×3 (11:18→17:48)
[2022-11-07] MEDS: MORPHine 2 MG/ML SYR IVP ×3 (11:25→19:26)
--- NOTE | 2022-11-07 12:27 | NUR.NOTE ---
this rn noticed pt at his doorway. asked him what he needs, he states i want the camera covered and turned off. this rn notified him that they are disconnected and not currently recording at this time. pt continues to state its my 4th amendment right to not be recorded and to have privacy, i need tape to cover it. this rn educated pt that it is unsafe to get on a chair to try to cover the camera that is attached to the ceiling. pt states that he is going to cover it anyway. charge nurse ana maria notified. she will assess situation with patient
[2022-11-07 13:15] VITALS: TEMP 36.5
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
[2022-11-07 15:23] VITALS: BP 122/74; PULSE 79; TEMP 35.5; O2SAT 97
[2022-11-07] MEDS: Enoxaparin 40 MG/0.4 ML SYR SC (19:26)
[2022-11-07] MEDS: Sulfameth/Trimeth DS TAB 1 TAB PO (19:27)
[2022-11-08] MEDS: Normal Saline Flush 10 ML SYR IJ ×4 (00:01→09:40)
[2022-11-08] MEDS: Acetaminophen 500 MG TAB 1000 MG PO ×4 (00:01→17:45)
[2022-11-08] MEDS: Ketorolac 15 MG/ML VIAL IVP ×4 (00:01→17:45)
[2022-11-08] MEDS: MORPHine 2 MG/ML SYR IVP ×4 (00:08→09:40)
[2022-11-08 00:09] VITALS: BP 115/70; PULSE 58; RESP 17; TEMP 35.9; O2SAT 100
[2022-11-08] MEDS: oxyCODONE 5 MG TAB PO ×3 (03:05→19:26)
[2022-11-08 06:00] VITALS: BP 130/68; PULSE 57; RESP 17; TEMP 35.2; O2SAT 99
[2022-11-08 07:05] LABS: HCT 40.2 % (40.0-50.0); HGB 13.6 g/dL (13.5-17.5); MCH 30.6 pg (27.0-33.0); MCHC 33.8 % (32.0-36.0); MCV 90 fL (80-95); MPV 9.6 fL (8.0-11.0); Platelet Count 249 10^3/uL (130-400); RBC 4.45 10^6/uL (4.36-5.78); RDW 13.5 % (11.8-14.1); RDW-SD 44.8 fL; WBC 11.01 10^3/uL (4.4-10.8)
--- NOTE | 2022-11-08 08:49 | W.PM.PROGNOT ---
Date of Service Date of service: 11/08/22 Time of Service: 08:49 Assessment and Plan Assessment and plan (1) Abscess of buttock, left: Status: Acute Assessment and plan: We will watch the wound over the next 24 hours to make sure there is no evidence of any more bleeding. Assuming it looks clean tomorrow, then we can try to get him out of the hospital. He understands the nature of this wound this can be challenging to take care of based on its location. However, there are not many good options at this point. Subjective Subjective Interval history since last seen: There was a little bit of bleeding from the surgical site last night, but it remained confined to the Band-Aid. He denied any subjective fevers or chills. Exam Skin Other: The wound is clean. There is a small amount of hematoma at the base of the wound that was easily debrided. There is no active bleeding. I repacked the wound and redressed it. Objective Last Vital Signs Temp 95.4 F L 11/08/22 06:00 Pulse 57 L 11/08/22 06:00 Resp 17 11/08/22 06:00 BP 130/68 11/08/22 06:00 Pulse Ox 99 11/08/22 06:00 Laboratory Results - last 24 hr 11/08/22 06:10 WBC 11.01 H RBC 4.45 Hgb 13.6 Hct 40.2 MCV 90 MCH 30.6 MCHC 33.8 RDW 13.5 Plt Count 249 MPV 9.6 Time Spent with Patient Time Spent with Patient: <25 minutes Time was spent: preparing to see the patient(eg.review tests) and care coordination
[2022-11-08] MEDS: Sulfameth/Trimeth DS TAB 1 TAB PO ×2 (09:38→19:26)
[2022-11-08] MEDS: Gabapentin 100 MG CAP PO ×3 (09:39→19:26)
[2022-11-08] MEDS: Nicotine 21 MG/24 HR PATCH TD (09:40)
[2022-11-08 10:30] LABS: HIV-1/2 Ag & Ab Screen Negative (Negative)
[2022-11-08 15:54] VITALS: BP 120/77; PULSE 58; RESP 15; TEMP 37.3; O2SAT 97
[2022-11-08] MEDS: Enoxaparin 40 MG/0.4 ML SYR SC (19:26)
[2022-11-08 21:29] VITALS: BP 105/67; PULSE 53; RESP 16; TEMP 36; O2SAT 97
[2022-11-09] MEDS: oxyCODONE 5 MG TAB PO ×2 (01:58→10:10)
[2022-11-09] MEDS: MORPHine 2 MG/ML SYR IVP (01:59)
[2022-11-09 07:00] LABS: HCT 43.1 % (40.0-50.0); HGB 14.5 g/dL (13.5-17.5); MCH 30.3 pg (27.0-33.0); MCHC 33.6 % (32.0-36.0); MCV 90 fL (80-95); MPV 9.3 fL (8.0-11.0); Platelet Count 277 10^3/uL (130-400); RBC 4.78 10^6/uL (4.36-5.78); RDW 13.4 % (11.8-14.1); RDW-SD 44.9 fL; WBC 12.09 10^3/uL (4.4-10.8)
[2022-11-09 08:11] VITALS: BP 112/73; PULSE 53; RESP 18; TEMP 35.9; O2SAT 100
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
[2022-11-09 09:06] LABS: Lab Add On Test DONE
[2022-11-09] MEDS: Sulfameth/Trimeth DS TAB 1 TAB PO (09:59)
[2022-11-09] MEDS: Ketorolac 15 MG/ML VIAL IVP (09:59)
[2022-11-09] MEDS: Gabapentin 100 MG CAP PO (09:59)
[2022-11-09] MEDS: Acetaminophen 500 MG TAB 1000 MG PO (09:59)
--- NOTE | 2022-11-09 10:40 | PGE_ITS ---
Date of Service Date of service: 11/09/22 Time of Service: 10:40 Assessment and Plan Assessment and plan (1) Smoker: Status: Acute (2) Marijuana smoker, episodic: Status: Acute (3) Abscess of buttock, left: Status: Acute Assessment and plan: - See discharge plan -MRSA screen was negative -HCV is negative -Cultures were all negative, however they were taken after patient had received Zosyn and vancomycin. Patient has had a history of soft tissue abscesses in the past. I think this may be related to hydroadenitis. Patient is homeless and this will be difficult to treat. He is a heavy smoker. (4) Moderate food insecurity on [employer] House[employer] Food Security Survey Module: Status: Acute (5) Unsheltered homelessness: Status: Acute (6) DM I (diabetes mellitus, type I): Status: Acute Assessment and plan: A1c is 5.4 Patient does not require treatment at this time (7) Asthma: Assessment and plan: Stop smoking (8) PTSD (post-traumatic stress disorder): (9) Seizure disorder: Assessment and plan: Patient has not been taking his medication Subjective Subjective Interval history since last seen: Patient would not answer any questions. He just kept insisting that he had to leave. He let me have a brief look at the morning. There is no redness or drainage. I do not see much granulation tissue. It does appear to be clean. Labs are reviewed Patient refused to let nursing change the packing or do any teaching. Patient was given instructions and supplies on packing wet-to-dry. We will follow-up in clinic on . I think at that point the wound will have filled in enough that we can put a PCOS on the wound. Objective Last Vital Signs Temp 35.9 C L 11/09/22 08:11 Pulse 53 L 11/09/22 08:11 Resp 18 11/09/22 08:11 BP 112/73 11/09/22 08:11 Pulse Ox 100 11/09/22 08:11 Laboratory Results - last 24 hr 11/06/22 11/09/22 11/09/22 06:35 06:24 06:31 WBC 12.09 H RBC 4.78 Hgb 14.5 Hct 43.1 MCV 90 MCH 30.3 MCHC 33.6 RDW 13.4 Plt Count 277 MPV 9.3 C-Reactive Protein HIV 1&2 Ag/Ab, 4th Gen Negative Add-On Test Request DONE 11/09/22 06:31 WBC RBC Hgb Hct MCV MCH MCHC RDW Plt Count MPV C-Reactive Protein 1.90 H HIV 1&2 Ag/Ab, 4th Gen Add-On Test Request Time Spent with Patient Time Spent with Patient: 35-49 minutes Time was spent: preparing to see the patient(eg.review tests), obtaining and/or reviewing separately otained hiistory, referring, communicating with other health dog day care attendant, indepentently interpreting results, counseling the patient and care coordination
[2022-11-09 11:05] LABS: Hepatitis C Ab w Rflx HCV PCR Negative (Negative)
--- NOTE | 2022-11-09 12:47 | PDOC.CMDIS ---
Date of service: 11/09/22 Time of Service: 12:47 LACE Index Scoring Tool Questions: Length of Stay (in days): 4 - 6 Was the patient admitted via the E.D.?: Yes Comorbidities: Diabetes w/o Complication and Liver or Renal Disease E.D. Visits: 5 Answers: Total Score: 16 Risk of Readmission: High Risk Care Management Discharge Plan Reason for Hospitalization: Left buttock abscess/DM/Hepc Discharge Plan: Andrzej will be discharged back to the community. He is currently homeless and lives in a tent. He has been instructed to perform daily dressing changes and will follow up with Dr. Peralta on 11/12/22 @1pm. Patient/Family Education Needs: Review discharge instructions, activity, limitations, follow up plan, discuss Ask Me Three.
== END 2022-11-09 10:50 | disposition other institution (70) | DRG 603 ==
LOC: ER 14:31 → SUR 15:43 → MS 17:33
PROVIDERS: Surgery; Admitting Provider Surgery; Emergency Provider Physician Assistant; Visit Provider Surgery
PROC: 0J990ZZ Drainage of Buttock Subcutaneous Tissue and Fascia, Open Approach (ICD-10-PCS; CPT 10060; principal; 2022-11-05 15:00)
DX: L02.31 Cutaneous abscess of buttock (principal); Z59.02 Unsheltered homelessness; Z59.41 Food insecurity; J45.909 Unspecified asthma, uncomplicated; F43.10 Post-traumatic stress disorder, unspecified; G40.909 Epilepsy, unspecified, not intractable, without status epilepticus; F12.90 Cannabis use, unspecified, uncomplicated; F17.210 Nicotine dependence, cigarettes, uncomplicated; L03.317 Cellulitis of buttock; F14.91 Cocaine use, unspecified, in remission; B18.2 Chronic viral hepatitis C; L73.2 Hidradenitis suppurativa; E11.9 Type 2 diabetes mellitus without complications
CPT/HCPCS: 10060; 11042; 36415; 80053; 85027; 86803; 87040; 87081; 87389; J1650; 74177; 80164; 80202; 83036; 85025; 86140; 87070; 87075; 87205; J1885; J2001; J2270; J2543; J2704; J3010

== ENCOUNTER 2022-11-30 00:27 | Emergency (ER) | payer SELFPAY ==
[2022-11-30] VITALS (25 sets, daily range): BP systolic 80–127; BP diastolic 19–84; PULSE 54–96; RESP 8–26; TEMP 36.8; O2SAT 96–99
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
[2022-11-30 01:17] LABS: Abs Immature Grans 0.06 10^3/uL (0.0-0.06); Absolute Lymphocyte Count 3.34 10^3/uL (1.2-3.4); Absolute Neutrophil Count 13.45 10^3/uL (1.2-6.7); Basophils % 0.3; Eosinophils % 1.7; HCT 42.7 % (40.0-50.0); HGB 14.6 g/dL (13.5-17.5); Immature Grans % 0.3; Lymphocytes % 18.2; MCH 30.1 pg (27.0-33.0); MCHC 34.2 % (32.0-36.0); MCV 88 fL (80-95); MPV 9.1 fL (8.0-11.0); Monocytes % 6.3; Neutrophils % 73.2; Platelet Count 275 10^3/uL (130-400); RBC 4.85 10^6/uL (4.36-5.78); RDW 13.2 % (11.8-14.1); WBC 18.37 10^3/uL (4.4-10.8)
[2022-11-30 01:20] LABS: ESR 26 mm/hr (0-15)
[2022-11-30] MEDS: HYDROmorphone 2 MG/ML SYR 1 MG IVP (01:20)
[2022-11-30] MEDS: Normal Saline 1,000 ML 1000 ML IV (01:20)
[2022-11-30 01:22] LABS: Absolute Basophil Count 0.06 10^3/uL (0.0-0.2); Absolute Eosinophil Count 0.31 10^3/uL (0.0-0.7); Absolute Monocyte Count 1.16 10^3/uL (0.1-0.8)
[2022-11-30 01:36] LABS: C-Reactive Protein 2.82 mg/dL (0.0-0.3)
[2022-11-30 01:37] LABS: ALT 21 U/L (16-63); AST 17 U/L (15-37); Albumin 3.7 g/dL (3.4-5.0); Alkaline Phosphatase 96 U/L (46-116); Anion Gap 8.3 mmol/L (3-11); BUN 11 mg/dL (7-18); Bilirubin, Total 0.9 mg/dL (0.2-1.0); CO2 27.7 mmol/L (21.0-32.0); Calcium 8.8 mg/dL (8.5-10.1); Chloride 104 mmol/L (98-107); Estimated GFR 103.19 (mL/min/1.73m2); Glucose 100 mg/dL (74-106); Magnesium 1.9 mg/dL (1.8-2.4); Potassium 3.5 mmol/L (3.5-5.1); Sodium 140 mmol/L (136-145); Total Protein 8.3 g/dL (6.4-8.2)
--- NOTE | 2022-11-30 01:45 | DI.CT_ITS ---
Exam(s) CT PELVIC W EXAM: CT PELVIC W CLINICAL HISTORY: recurrent abscess. TECHNIQUE: Imaging Protocol: Axial computed tomography images with coronal and sagittal reformatted images were created and reviewed. CONTRAST MATERIAL: Intravenous: Omnipaque 350 Contrast volume:structured data in ml Contrast route:I V - Oral: / no COMPARISON: CT CT ABDOMEN PELVIS W from 11/05/2022 FINDINGS: Bladder: Symmetric distention, no gross wall thickening. Bowel: No obstruction or bowel wall thickening. Peritoneal cavity: No ascites, collection or mesenteric inflammatory response. Soft tissues: Focal abscess collection seen within the skin and subcutaneous fat of the left inferior gluteal cleft. The focal fluid collection measures 1.7 x 1 cm. This is in the same location as on the prior exam. Mildly enlarged bilateral inguinal lymph nodes, reactive. Bones: Unremarkable. IMPRESSION: 1.7 by 1 cm abscess in the subcutaneous fat of the left inferior gluteal fold. No perirectal abscess or intrapelvic abnormality. RADIATION DOSE DELIVERED: 338.96mGy.cm Total DLP DATA REPOSITORY: All CT scans at this facility are submitted to the National Radiology Data Registry (NRDR) Dose Index Registry (DIR) with the [employer] (ACR). RADIATION OPTIMIZATION: All CT scans at this facility use at least one of these dose optimization te chniques: automated exposure control; mA and/or kV adjustment per patient size (includes targeted exa ms where dose is matched to clinical indication); or iterative reconstruction.
--- NOTE | 2022-11-30 01:47 | NUR.NOTE ---
Nursing Note: Lab presented to room to draw second set of blood cultures. Pt agitated and declined further blood draw. Pt declined IV tylenol.
[2022-11-30 01:48] LABS: VALPROIC ACID < 3 ug/mL
[2022-11-30] MEDS: Omnipaque 350 MG/ML 100 ML BTL IJ (01:58)
[2022-11-30] MEDS: Normal Saline - Diluent 50 ML VIAL IJ (02:00)
[2022-11-30] MEDS: Normal Saline Flush 10 ML SYR IVP (02:00)
--- NOTE | 2022-11-30 02:56 | DI.VRAD_ITS ---
PROCEDURE INFORMATION: Exam: CT Abdomen And Pelvis With Contrast Exam date and time: 11/30/2022 2:19 AM Age: 32 years old Clinical indication: Prior surgery; Surgery date: 3-7 days post-operative; Surgery type: Recurrent abscess, surgery 1 week out; Patient HX: Pain from tailbone down under scrotum and inner thigh. TECHNIQUE: Imaging protocol: Computed tomography of the abdomen and pelvis with contrast. Radiation optimization: All CT scans at this facility use at least one of these dose optimization techniques: automated exposure control; mA and/or kV adjustment per patient size (includes targeted exams where dose is matched to clinical indication); or iterative reconstruction. Contrast material: OMNIPAQUE 350; Contrast volume: 100 ml; Contrast route: INTRAVENOUS (IV); COMPARISON: CT ABDOMEN PELVIS W 11/05/2022 1:54 PM FINDINGS: Liver: Normal. No mass. Gallbladder and bile ducts: Normal. No calcified stones. No ductal dilation. Pancreas: Normal. No ductal dilation. Spleen: Normal. No splenomegaly. Adrenal glands: Normal. No mass. Kidneys and ureters: Normal. No hydronephrosis. Stomach and bowel: Unremarkable. No obstruction. No mucosal thickening. Appendix: No evidence of appendicitis. Intraperitoneal space: Unremarkable. No free air. No significant fluid collection. Vasculature: Unremarkable. No abdominal aortic aneurysm. Lymph nodes: Bilateral inguinal adenopathy. Urinary bladder: Unremarkable as visualized. Reproductive: Unremarkable as visualized. Bones/joints: Unremarkable. No acute fracture. Soft tissues: There is evidence of skin thickening and subcutaneous fat stranding within the gluteal cleft. There is a focal fluid collection within the left gluteal cleft region measuring 1.7 x 1.0 cm. IMPRESSION: There is evidence of skin thickening and subcutaneous fat stranding within the gluteal cleft. There is a focal fluid collection within the left gluteal cleft region measuring 1.7 x 1.0 cm. Findings most compatible with abscess. The appearance is more loculated on today's study when compared to the 11/05/2022 exam. Dictated and Authenticated by: Stevenson Gallardo MD. Ordering:KAYLI Francis MD
[2022-11-30] MEDS: AMPICILLIN/SULBACTAM 3 GM in Normal Saline 100 ML IVPB (03:53)
[2022-11-30] MEDS: VANCOMYCIN 1,000 MG in Normal Saline 250 ML 166.6666 MG IVPB (04:36)
[2022-11-30] MEDS: HYDROmorphone 2 MG/ML SYR IVP (04:48)
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
[2022-11-30] MEDS: PIPERACILLIN/TAZO 3.375 GM in Normal Saline 50 ML IVPB (08:49)
--- NOTE | 2022-11-30 09:00 | ED.PROG_ITS ---
Date of service: 11/30/22 Time of Service: 09:00 Medical Decision Making Patient was signed out to me pending evaluation by surgery. Dr. Lockhart has come down and evaluate the patient he does recommend admission for I&D. Patient will be admitted for continued antibiotics and surgical management. I have khrissi felibertoy reviewed the treatment plan with the patient. I have addressed all patient concerns at this time. I have also discussed the plan with the admitting physician and they agree with the current assessment and plan and have agreed to assume responsibility for the patient. All parties demonstrate verbal understanding and agreement with our assessment and plan at this time. The documentation in this chart was dictated using [employer] dictation software. Please excuse any dictation errors. Sign Out Sign Out Data: Sign Out Comment: Gluteal cleft recurrent abscess with elevated CRP and WBC awaiting surgical evaluation. Last updated by Penny Reich MD at 11/30/22 07:50 Discharge Plan Discharge Details Chief Complaint: GenMedical Primary Care Provider: None,None ED Provider: John Peng Gardner Meds and New Rx's Prescriptions: No Action divalproex [Depakote] 500 mg tablet,delayed release (DR/EC) 500 mg PO TID 30 Days Qty: 90 0RF ibuprofen 800 mg tablet 800 mg PO Q8H PRN (Reason: pain (scale score 4-6)) Qty: 90 3RF Rx Instructions: take w/ food. acetaminophen [Tylenol Extra Strength] 500 mg tablet 1,000 mg PO Q6H PRNQty: 90 2RF albuterol sulfate 90 mcg/actuation HFA aerosol inhaler 2 puff inhalation Q6H PRN (Reason: shortness of breath or wheezing) Qty: 8.5 0RF
--- NOTE | 2022-11-30 09:36 | NUR.NOTE ---
Nursing Note: Report given to med/surg for surgical patient. Pt was upset about being NPO for his surgery scheduled at noon. Dr Peng went in and talked with him and the patient decided to leave AMA anyway. Amam form signed but he left without his discharge. I offered to mail them to him and he stated Nah i dont need that. Just put it where ever you need to.
--- NOTE | 2022-11-30 10:09 | ED.PROG_ITS ---
Date of service: 11/30/22 Time of Service: 10:11 Medical Decision Making The patient was originally admitted to the surgical team for inpatient management, unfortunately the patient was hungry, and wanted to leave to go eat. He had some drainage that already came out and he did not want to have surgical intervention anymore. I went in the room and address the patient, we discussed his concerns. Patient is of a appropriate age to make decisions. The patient is of sound mind, appears clinically sober, and has capacity to make decisions by my clinical exam. We have provided options for treatment and discussed the risks and benefits of these options and refusing these options, including and disability specific to the patient's pathology. Patient is able to discuss the risks and benefits and alternatives of treatment and refusing treatment. We have tried to involve the patient's family or support group that was present here or by contacting them on the phone. The patient chooses to leave before evaluation and treatment is complete AGAINST MEDICAL ADVICE. Patient was unwilling to wait for additional paperwork, and left to go buy food at the store. He has refused admission. He understands the risks of this. Additionally after the patient left he then came back and states that he would like antibiotics now. I did reach out to Dr. Lockhart and we discussed it together, we will start the patient on Augmentin. Prescription will be sent to his pharmacy. I have extensively reviewed the treatment plan and discharge instructions with the patient. I have addressed all patient concerns at this time. The patient was made aware of what symptoms to monitor for that would warrant a return to the emergency department. Discussed the plan with the patient, they demonstrate verbal understanding and agreement with our assessment and plan at this time. The documentation in this chart was dictated using [facility] dictation software. Please excuse any dictation errors. Sign Out Sign Out Data: Sign Out Comment: Gluteal cleft recurrent abscess with elevated CRP and WBC awaiting surgical evaluation. Last updated by Penny Reich MD at 11/30/22 07:50 Discharge Plan Discharge Details Chief Complaint: GenMedical Primary Care Provider: None,None ED Provider: John Peng Home Meds and New Rx's Prescriptions: New amoxicillin-pot clavulanate 875-125 mg tablet 1 tab PO BID 10 Days Qty: 20 0RF No Action divalproex [Depakote] 500 mg tablet,delayed release (DR/EC) 500 mg PO TID 30 Days Qty: 90 0RF ibuprofen 800 mg tablet 800 mg PO Q8H PRN (Reason: pain (scale score 4-6)) Qty: 90 3RF Rx Instructions: take w/ food. acetaminophen [Tylenol Extra Strength] 500 mg tablet 1,000 mg PO Q6H PRNQty: 90 2RF albuterol sulfate 90 mcg/actuation HFA aerosol inhaler 2 puff inhalation Q6H PRN (Reason: shortness of breath or wheezing) Qty: 8.5 0RF
== END 2022-11-30 09:35 | disposition left against medical advice (07) ==
PROVIDERS: Emergency Medicine; Emergency Provider Student in an Organized Health Care Education/Training Program
DX: L02.215 Cutaneous abscess of perineum (principal); B19.20 Unspecified viral hepatitis C without hepatic coma; E11.9 Type 2 diabetes mellitus without complications; G40.909 Epilepsy, unspecified, not intractable, without status epilepticus; F17.210 Nicotine dependence, cigarettes, uncomplicated; Z91.148 Patient's other noncompliance with medication regimen for other reason; Z53.29 Procedure and treatment not carried out because of patient's decision for other reasons
CPT/HCPCS: 36415; 80053; 82805; 85652; 87040; 96361; 96365; 96366; 96367; 96375; 99285; 72193; 80164; 83605; 83735; 85025; 86140; 99284; J0295; J1170; J2543; J3490

== ENCOUNTER 2022-11-30 21:38 | Inpatient (IN) | payer SELFPAY ==
[2022-11-30 21:42] VITALS: BP 118/70; PULSE 61; RESP 17; TEMP 35.9; O2SAT 98
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
[2022-11-30] MEDS: VANCOMYCIN 1,000 MG in Normal Saline 250 ML 166.6666 MG IVPB (22:18)
[2022-11-30] MEDS: PIPERACILLIN/TAZO 3.375 GM in Normal Saline 50 ML IVPB (22:20)
[2022-11-30 22:26] LABS: Abs Immature Grans 0.04 10^3/uL (0.0-0.06); Absolute Basophil Count 0.06 10^3/uL (0.0-0.2); Absolute Monocyte Count 0.81 10^3/uL (0.1-0.8); Absolute Neutrophil Count 8.51 10^3/uL (1.2-6.7); Basophils % 0.5; Eosinophils % 2.4; HCT 39.9 % (40.0-50.0); HGB 13.7 g/dL (13.5-17.5); Immature Grans % 0.3; Lymphocytes % 22.9; MCH 30.5 pg (27.0-33.0); MCHC 34.3 % (32.0-36.0); MCV 89 fL (80-95); MPV 8.9 fL (8.0-11.0); Monocytes % 6.4; Neutrophils % 67.5; Platelet Count 269 10^3/uL (130-400); RBC 4.49 10^6/uL (4.36-5.78); RDW 13.4 % (11.8-14.1); RDW-SD 43.7 fL
[2022-11-30 22:28] LABS: Absolute Lymphocyte Count 2.89 10^3/uL (1.2-3.4)
[2022-11-30 22:44] LABS: ALT 23 U/L (16-63); AST 18 U/L (15-37); Albumin 3.5 g/dL (3.4-5.0); Alkaline Phosphatase 78 U/L (46-116); Anion Gap 6.3 mmol/L (3-11); BUN 13 mg/dL (7-18); Bilirubin, Total 0.6 mg/dL (0.2-1.0); CO2 28.7 mmol/L (21.0-32.0); Calcium 8.9 mg/dL (8.5-10.1); Chloride 106 mmol/L (98-107); Estimated GFR 103.19 (mL/min/1.73m2); Glucose 98 mg/dL (74-106); Potassium 3.8 mmol/L (3.5-5.1); Sodium 141 mmol/L (136-145); Total Protein 7.9 g/dL (6.4-8.2)
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
[2022-12-01] MEDS: Divalproex 500 MG TABEC PO ×2 (00:05→07:23)
[2022-12-01] MEDS: PIPERACILLIN/TAZO 3.375 GM in Normal Saline 50 ML IVPB (07:22)
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
--- NOTE | 2022-12-01 12:42 | PDOC.CMPRO ---
Date of service: 12/01/22 Time of Service: 12:42 Care Management Progress Note Progress Note Text Progress Note Text: Andrzej became upset this morning and left against medical advice after threatening staff. EUSEBIA was unable to meet with Andrzej prior to his departure.
== END 2022-12-01 10:52 | disposition left against medical advice (07) | DRG 394 ==
LOC: ER 22:04 → MS 22:43
PROVIDERS: Admitting Provider Surgery; Emergency Provider Nurse Practitioner Family; Visit Provider Surgery
DX: K61.0 Anal abscess (principal); L02.31 Cutaneous abscess of buttock; F12.90 Cannabis use, unspecified, uncomplicated; F17.210 Nicotine dependence, cigarettes, uncomplicated; Z59.41 Food insecurity; Z59.02 Unsheltered homelessness; J45.909 Unspecified asthma, uncomplicated; G40.909 Epilepsy, unspecified, not intractable, without status epilepticus; F43.10 Post-traumatic stress disorder, unspecified
CPT/HCPCS: 80053; 87040; 99285; 83605; 85025; J2543

== ENCOUNTER 2023-01-16 17:31 | Emergency (ER) | payer OTHER, SELFPAY ==
[2023-01-16 17:37] VITALS: BP 119/69; PULSE 79; RESP 18; TEMP 36.9; O2SAT 99
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
[2023-01-16] MEDS: Ibuprofen 600 MG TAB PO (18:11)
--- NOTE | 2023-01-16 18:30 | DI.CT_ITS ---
Exam(s) CT LOWER EXTREMITY RT WO EXAM: CT LOWER EXTREMITY RT WO CLINICAL HISTORY: pain, injury. TECHNIQUE: Imaging Protocol: Axial computed tomography images with coronal and sagittal reformatted images were created and reviewed. COMPARISON: CR,XR XR KNEE RT 4V AP,LAT,BRUCE,PAT from 01/16/2023 FINDINGS: Bones: There is mild depression of the medial femoral condyle at the patellofemoral facet location. This may be within normal limits but a small depression fracture cannot be excluded. No other findi ngs to suggest an acute fracture seen. Bony alignment is satisfactory. No cellulitic or osteomyelit ic changes are identified. There is no evidence of joint space narrowing or cystic degeneration seen . No lytic or sclerotic lesions are identified. Soft Tissues: There is a joint effusion. No lipohemarthrosis is seen. There are 4 osseous densities which appear to lie within the joint space suggesting loose bodies. No donor site is seen in the josephine ne. IMPRESSION: 1. Question of a small depression fracture involving the medial femoral condyle. An MRI is recommend ed in this patient for further evaluation. 2. Joint effusion. No lipohemarthrosis. RADIATION DOSE DELIVERED: 239.33mGy.cm Total DLP 239.33mGy.cm Total DLP DATA REPOSITORY: All CT scans at this facility are submitted to the National Radiology Data Registry (NRDR) Dose Index Registry (DIR) with the [employer] (ACR). RADIATION OPTIMIZATION: All CT scans at this facility use at least one of these dose optimization te chniques: automated exposure control; mA and/or kV adjustment per patient size (includes targeted exa ms where dose is matched to clinical indication); or iterative reconstruction.
--- NOTE | 2023-01-16 18:32 | DI.RAD_ITS ---
Exam(s) XR KNEE RT 4V AP,LAT,BRUCE,PAT EXAM: XR KNEE RT 4V AP,LAT,BRUCE,PAT CLINICAL HISTORY: injured knee 1.5 wks ago. TECHNIQUE: 2D digital imaging was performed of the right knee. Four views obtained. Merchant, AP, la teral and PA tunnel views were obtained. COMPARISON: No exams were available for comparison FINDINGS: BONES: No acute fracture is present. No bony destructive lesion is seen. JOINTS: The knee is normally aligned. Large joint effusion. There are few osseous density seen which appear to be within the joint space. SOFT TISSUE: Normal. IMPRESSION: Joint effusion. No definite acute fracture or dislocation. DATA REPOSITORY: RADIATION DOSE DELIVERED:
--- NOTE | 2023-01-16 18:52 | DI.VRAD_ITS ---
PROCEDURE INFORMATION: Exam: XR Right Knee Exam date and time: 01/16/2023 18:15 Age: 32 years old Clinical indication: Injury or trauma; Fall; Work related; Blunt trauma; Right; Injury date: 01/06/23; Patient HX: Injured knee 1.5 weeks ago TECHNIQUE: Imaging protocol: Radiologic exam of the right knee. Views: 4 or more views. COMPARISON: No relevant prior studies available. FINDINGS: Bones/joints: Moderate joint effusion. No acute fracture or subluxation. Miniscule calcification projects over the right lateral joint. Favor this is external to the joint, could be worked up with MRI. Soft tissues: Soft tissue swelling anteriorly. IMPRESSION: 1. No acute bony pathology. 2. Moderate joint effusion. Dictated and Authenticated by: Diana Leung MD. Ordering:BAYLEE Munoz MD
[2023-01-16] MEDS: Acetaminophen 325 MG TAB 650 MG PO (19:16)
--- NOTE | 2023-01-16 19:28 | DI.VRAD_ITS ---
PROCEDURE INFORMATION: Exam: CT Right Lower Extremity Without Contrast, Knee Exam date and time: 01/16/2023 19:05 Age: 32 years old Clinical indication: Other: Pain, injury TECHNIQUE: Imaging protocol: CT of the right lower extremity without contrast was performed. Exam focused on the knee. Radiation optimization: All CT scans at this facility use at least one of these dose optimization techniques: automated exposure control; mA and/or kV adjustment per patient size (includes targeted exams where dose is matched to clinical indication); or iterative reconstruction. COMPARISON: CR XR KNEE RT 4V AP,LAT,BRUCE,PAT 01/16/2023 18:15 FINDINGS: Bones/joints: Irregularity of the medial femoral condyle at the patellofemoral facet. Subcentimeter focus of lucency below the cortex. Minimal density, medial tibial plateau. Large joint effusion; on the lateral aspect there is a small hemarthrosis component. Miniscule calcifications predominantly external to the joint; tiny medial knee joint calcification, age indeterminate. The alignment is within normal limits. Soft tissues: Swelling most pronounced anteriorly. IMPRESSION: 1. Possible tiny osteochondral defect, lateral femoral condyle at the patellofemoral facet as above. 2. Suspected bone contusion, medial tibial plateau. Both of these findings could be worked up with MRI 3. Large joint effusion; on the lateral aspect there is a small hemarthrosis component. Dictated and Authenticated by: Diana Leung MD. Ordering:BAYLEE Munoz MD
== END 2023-01-16 20:03 | disposition home or self-care (01) ==
PROVIDERS: Emergency Provider Student in an Organized Health Care Education/Training Program
DX: S89.81XA Other specified injuries of right lower leg, initial encounter (principal); M25.461 Effusion, right knee; W01.198A Fall on same level from slipping, tripping and stumbling with subsequent striking against other object, initial encounter; Y93.01 Activity, walking, marching and hiking; Y92.89 Other specified places as the place of occurrence of the external cause; Y99.9 Unspecified external cause status; F17.210 Nicotine dependence, cigarettes, uncomplicated
CPT/HCPCS: 99284; 73564; 73700; 99283

== ENCOUNTER 2023-01-28 19:25 | Emergency (ER) | payer MEDICAID, SELFPAY ==
[2023-01-28 19:31] VITALS: BP 115/76; PULSE 83; RESP 16; TEMP 36.1; O2SAT 98
[2023-01-28 20:32] LABS: COVID-19 PCR Negative (Negative); Influenza A PCR Negative (Negative); Influenza B PCR Negative (Negative); RSV PCR Negative (Negative)
[2023-01-28 20:41] LABS: Source Nasopharynx
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
== END 2023-01-28 21:40 | disposition left against medical advice (07) ==
PROVIDERS: Emergency Provider Emergency Medicine Emergency Medical Services
DX: J06.9 Acute upper respiratory infection, unspecified (principal); F17.210 Nicotine dependence, cigarettes, uncomplicated; Z20.822 Contact with and (suspected) exposure to COVID-19
CPT/HCPCS: 87637; 99283

== ENCOUNTER 2023-03-12 04:54 | Observation (INO) | payer MEDICAID, SELFPAY ==
[2023-03-12] VITALS (11 sets, daily range): BP systolic 75–137; BP diastolic 38–88; PULSE 52–78; RESP 13–19; TEMP 34.4–36.6; O2SAT 95–100; BMI 28.3
--- NOTE | 2023-03-12 05:00 | DI.CT_ITS ---
Exam(s) CT ABDOMEN PELVIS W EXAM: CT ABDOMEN PELVIS W CLINICAL HISTORY: left gluteal/perianal abscess surg recurrent pain. TECHNIQUE: Imaging Protocol: Axial computed tomography images with coronal and sagittal reformatted images were created and reviewed CONTRAST MATERIAL: Intravenous: Omnipaque 350 Contrast volume:100 ml Oral: / no COMPARISON: CT CT PELVIC W from 11/30/2022 FINDINGS: ABDOMEN and PELVIS: Soft tissues: The gluteal fold are not completely image on this exam. There is skin thickening invol ving both medial gluteal fold. There is a suggestion of a small abscess collection in the left anter omedial gluteal fold. Lung Bases: Normal where visualized. Liver: Normal density. No measurable mass. Gallbladder and biliary tract: No radiodense calculus or dilation. Pancreas: Normal density. No abnormal calcifications or inflammatory process. No evidence of mass. Spleen: Normal. Kidneys: Normal size, contour and axis. No radiodense stones. No obstructive uropathy. No suspicious masses seen. Adrenal glands: No masses seen. Vasculature: Abdominal aorta non-dilated. Bladder: No gross wall thickening. No calculi.No focal mass. Bowel: No obstruction. No bowel wall thickening. Appendix normal. Peritoneal cavity: No ascites. No focal collection or mesenteric inflammatory response. Bones: Unremarkable for age. Reproductive organs: Within normal limits. Lymph nodes: Unremarkable. IMPRESSION:: Skin thickening and inflammation in both medial gluteal fold. There is suggestion of a n abscess on the left however this is not fully included on the exam. RADIATION DOSE DELIVERED: Total DLP DATA REPOSITORY: All CT scans at this facility are submitted to the National Radiology Data Registry (NRDR) Dose Index Registry (DIR) with the [employer] (ACR). RADIATION OPTIMIZATION: All CT scans at this facility use at least one of these dose optimization te chniques: automated exposure control; mA and/or kV adjustment per patient size (includes targeted exa ms where dose is matched to clinical indication); or iterative reconstruction.
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
[2023-03-12] MEDS: CLINDAMYCIN 600 MG/50 ML BAG 100 MG IVPB (05:10)
[2023-03-12 05:11] LABS: Abs Immature Grans 0.06 10^3/uL (0.0-0.06); Absolute Basophil Count 0.06 10^3/uL (0.0-0.2); Absolute Lymphocyte Count 3.15 10^3/uL (1.2-3.4); Absolute Monocyte Count 1.07 10^3/uL (0.1-0.8); Basophils % 0.4; Eosinophils % 1.7; HCT 43.6 % (40.0-50.0); HGB 14.5 g/dL (13.5-17.5); Immature Grans % 0.4; Lymphocytes % 20.8; MCHC 33.3 % (32.0-36.0); MCV 87 fL (80-95); MPV 8.9 fL (8.0-11.0); Monocytes % 7.1; Neutrophils % 69.6; Platelet Count 252 10^3/uL (130-400); RDW 13.5 % (11.8-14.1); RDW-SD 43.3 fL; WBC 15.13 10^3/uL (4.4-10.8)
[2023-03-12] MEDS: Ketorolac 15 MG/ML VIAL IVP (05:11)
[2023-03-12 05:14] LABS: Absolute Eosinophil Count 0.26 10^3/uL (0.0-0.7); Absolute Neutrophil Count 10.53 10^3/uL (1.2-6.7)
[2023-03-12 05:26] LABS: ALT 21 U/L (16-63); AST 19 U/L (15-37); Albumin 3.6 g/dL (3.4-5.0); Alkaline Phosphatase 85 U/L (46-116); Anion Gap 6.8 mmol/L (3-11); BUN 14 mg/dL (7-18); Bilirubin, Total 0.4 mg/dL (0.2-1.0); CO2 29.2 mmol/L (21.0-32.0); CREATININE 0.9 mg/dL (0.70-1.30); Calcium 9.1 mg/dL (8.5-10.1); Chloride 102 mmol/L (98-107); Glucose 139 mg/dL (74-106); Potassium 3.7 mmol/L (3.5-5.1); Sodium 138 mmol/L (136-145); Total Protein 8.5 g/dL (6.4-8.2)
[2023-03-12] MEDS: Omnipaque 350 MG/ML 100 ML BTL IJ (05:58)
[2023-03-12] MEDS: Normal Saline - Diluent 50 ML VIAL IJ (05:58)
[2023-03-12] MEDS: Normal Saline Flush 10 ML SYR IVP ×2 (05:59→20:16)
[2023-03-12] MEDS: ACETAMINOPHEN 1,000 MG/100 ML BTL 400 MG IVPB (06:06)
[2023-03-12] MEDS: Lidocaine/Epinephri/Tetracaine Topical Gel 3 ML TP (06:06)
--- NOTE | 2023-03-12 06:08 | DI.VRAD_ITS ---
PROCEDURE INFORMATION: Exam: CT Abdomen And Pelvis With Contrast Exam date and time: 03/12/2023 5:45 AM Age: 32 years old Clinical indication: Prior surgery; Surgery date: 1-6 months; Surgery type: Lt gluteal / perineal abscess surg recurrent pain TECHNIQUE: Imaging protocol: Computed tomography of the abdomen and pelvis with contrast. COMPARISON: CT PELVIC W 11/30/2022 2:19 AM FINDINGS: Liver: Normal. No mass. Gallbladder and bile ducts: Normal. No calcified stones. No ductal dilation. Pancreas: Unremarkable. Spleen: Normal. Adrenal glands: Normal. No mass. Kidneys and ureters: Normal. No hydronephrosis. Stomach and bowel: Unremarkable. No bowel wall thickening or intestinal obstruction. Appendix: Normal appendix. Intraperitoneal space: Unremarkable. No pneumoperitoneum. No abscess. Vasculature: Unremarkable. Lymph nodes: Unremarkable. Urinary bladder: Unremarkable as visualized. Reproductive: Unremarkable as visualized. Bones/joints: Unremarkable. No acute fracture. Soft tissues: The area of interest is mostly inferior to the inferior extent of the study. There is dense inflammation/induration visible involving the skin and superficial subcutaneous tissue of the anteromedial left buttock with beginning of attenuation change suggesting the presence of an abscess. No soft tissue gas. IMPRESSION: The area of interest is mostly inferior to the inferior extent of the study. There is dense inflammation/induration visible involving the skin and superficial subcutaneous tissue of the anteromedial left buttock with beginning of attenuation change suggesting the presence of an abscess. No soft tissue gas. This abnormality extends beyond the inferior extent of the scan. Dictated and Authenticated by: Vinny Quiros MD. Ordering:SHARRON Ornelas MD
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
[2023-03-12] MEDS: HYDROmorphone 2 MG/ML SYR 1 MG IVP ×2 (07:44→11:58)
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
[2023-03-12] MEDS: Bupivacaine LIPOSOME/PF 133 MG/10 ML VIAL IJ (12:52)
[2023-03-12] MEDS: ePHEDrine 25 MG/5 ML Syringe IVP (13:16)
--- NOTE | 2023-03-12 13:25 | W.PM.OP ---
Date of service: 03/12/23 Time of Service: 13:25 Operative Note Operative Note DATE OF PROCEDURE: 03/12/23 PRE-OP DIAGNOSIS: Hidradenitis with acute abscess POST-OP DIAGNOSIS: same PROCEDURE: Incision and drainage of 3 abscesses in the bilateral gluteus SURGEON: Bacilio Lockhart ANESTHESIA TYPE: Local By Surgeon and General:No Airway Refer to Anesthesia Record ESTIMATED BLOOD LOSS: 15 PATHOLOGY: other (Left buttock abscess for Gram stain and culture) COMPLICATIONS: None Patient was transported to: floor Patient's condition: stable Indications: Andrzej is a 32-year-old male with an acute abscess of the left gluteus, as well as evolving abscesses on the right gluteus. This appears to be complications of hidradenitis suppurativa Procedure Description: After the induction of general anesthesia by way of a natural airway, the patient was placed in lithotomy positioning. The perineum was then prepped and draped in the usual fashion. There was already some spontaneous drainage of slightly purulent appearing fluid from the left gluteal region. Fluid was slightly cloudy. I established a generous field block using Exparel. Next, using a hemostat, I gently enlarge the opening in the skin. Again, there was some spontaneous drainage of pus. Specimens were obtained for Gram stain and culture. Next, I probed the region with a hemostat. Seem to tracked slightly cephalad, approximately 4 cm deep into the subcutaneous tissues. Loculations were disrupted using the hemostat. Next, I turned my attention to the right side. Again, there were 2 areas of inflammation with some drainage. These were all opened with hemostat interrogation. These 2 regions tracked approximately 1 cm in the subcutaneous tissue. The indurated skin at all of the lesions was sharply excised with a 15 blade scalpel. The wounds were all then irrigated with saline solution prior to packing with half-inch iodoform gauze packing. Next, I did perform a digital anorectal exam to ensure no other pathology within the anal column. This was totally normal. An ABD pad and mesh undergarment was then applied, and the patient was allowed awaken from anesthesia prior to transfer out of the operating room.
[2023-03-12] MEDS: fentaNYL 100 MCG/2 ML VIAL IVP (13:29)
[2023-03-12] MEDS: HYDROmorphone 2 MG/ML SYR IVP ×2 (13:40→13:48)
--- NOTE | 2023-03-12 15:02 | W.ANESPOSTOP ---
Postoperative Evaluation Date, Time and Location Date Performed: 03/12/23 Time Performed: 14:35 Patient Location: PACU Vital Signs Most Recent Imported Vital Signs: Most Recent Vital Signs Temp Pulse Resp BP Pulse Ox 34.4 C L 60 18 103/66 97 03/12/23 14:30 03/12/23 14:30 03/12/23 14:30 03/12/23 14:30 03/12/23 14:30 Pain Score Most Recent Pain Score: Most Recent Pain Score Pain Level 8 03/12/23 14:30 Assessment Mental Status: Awake (Alert & Oriented to Patient Baseline) Airway and Respiratory Function: Patent airway with normal (patient baseline) respiratory exam Cardiovascular Function: Hemodynamically Stable Hydration Status: Adequately Hydrated Nausea & Vomiting: No Nausea or Vomiting Pain: Pain is Moderate or Severe Postoperative Pain Management: Ongoing pain, patient will be managed as an inpatient Peripheral Nerve Block: Patient did not receive a nerve block
[2023-03-12] MEDS: Clindamycin 300 MG CAP 600 MG PO ×2 (15:48→21:51)
[2023-03-12] MEDS: Acetaminophen 500 MG TAB 1000 MG PO (20:22)
--- NOTE | 2023-03-12 21:30 | RT.EKG_ITS ---
APPROVED REPORT Exam: Resting ECG Reason for Exam: chest pain Patient Location: I HR:58 bpm ECG Measurements Heart Rate 58 AXIS TN 149 P 22 QRSd 95 QRS 38 QT 394 T 8 QTc 387 Conclusion Sinus rhythm...normal P axis, V-rate 50- 99 Normal Electrocardiogram
--- NOTE | 2023-03-12 21:30 | DI.RAD_ITS ---
Exam(s) XR CHEST 2V PA LATERAL EXAM: XR CHEST 2V PA LATERAL CLINICAL HISTORY: chest pain TECHNIQUE: 2D digital imaging was performed. COMPARISON: CR,XR XR CHEST 2V PA LATERAL from 08/29/[address] CHEST/ABD/PEL W from 09/13/2022 FINDINGS: HEART: Normal size. Aorta: Not dilated. PULMONARY VASCULATURE: Normal. LUNGS: Clear. PLEURAL SPACE: No pleural effusion or pneumothorax. BONE:Unremarkable for age. IMPRESSION: No acute abnormality. DATA REPOSITORY: RADIATION DOSE DELIVERED:
[2023-03-12] MEDS: Ibuprofen 800 MG TAB PO (21:44)
[2023-03-12 22:17] LABS: Troponin I < 50 ng/L (<or=60)
--- NOTE | 2023-03-12 22:46 | DI.VRAD_ITS ---
PROCEDURE INFORMATION: Exam: XR Chest Exam date and time: 03/12/2023 10:17 PM Age: 32 years old Clinical indication: Chest wall pain; Additional info: Chest pain TECHNIQUE: Imaging protocol: Radiologic exam of the chest. Views: 2 views. COMPARISON: CT CHEST/ABD/PEL W 09/13/2022 4:58 AM FINDINGS: Lungs: Unremarkable. No consolidation. Pleural spaces: Unremarkable. No pleural effusion. No pneumothorax. Heart/Mediastinum: Unremarkable. No cardiomegaly. Bones/joints: Unremarkable. IMPRESSION: No acute findings. Dictated and Authenticated by: Sridhar Tineo MD. Ordering:CLEMENTE Schultz MD
--- NOTE | 2023-03-12 23:08 | NUR.NOTE ---
Addendum entered by Georgina Taylor RN 03/12/23 23:56: Staff heard pt throwing up again in the bathroom and entered to check on pt. Pt still in bathroom, states that he feels so much better, I just need to get all that antibiotic out of me. When asked what the emesis looked like pt states antibiotic and everything I ate earlier. Pt repeated I just need to get everything out of me and proceeded to make himself throw up one more time by sticking his fingers down his throat. This sports book writer and [employer] strongly discouraged this but pt states it's okay, really, I've done it before as a kid and it makes me feel better. I feel so much better, I could do 20 backflips and land on my ass that they did surgery on today. Pt denies making himself throw up previously, only on the last time. Staff again discouraged pt from making himself throw up again. Pt appears to be in good spirits, states he feels so much better, states chest pain has improved as well. Pt states I'm not taking any more of that antibiotic. Pt requested snack because I'm empty now. Light snack of soup and toast given. Pt resting in bed at this time eating snack, appears comfortable, denies complaints. community development technician updated with the above. Original Note: Pt reports having emesis and throwing up HS snack. Pt states he believes the antibiotic given earlier is making him feel sick. Pt reports that the nausea is subsiding, declines PRN. Pt also reports that following emesis, chest pain slightly improving as well. Pt states I don't want any more medication, it's 1000% that antibiotic. Pt resting in bed at this time, appears comfortable, denies needs, states he wants to sleep. Call light within reach, pt instructed to call staff with any changes, pt agreeable. community development technician updated. Nursing Note:
[2023-03-13 03:27] VITALS: BP 108/61; PULSE 60; RESP 16; TEMP 36.2; O2SAT 96
[2023-03-13 07:44] VITALS: BP 118/68; PULSE 63; RESP 18; TEMP 36; O2SAT 97
--- NOTE | 2023-03-13 09:47 | W.PM.PROGNOT ---
Date of Service Date of service: 03/13/23 Time of Service: 13:56 Assessment and Plan Assessment and plan (1) Perianal abscess: Status: Acute Assessment and plan: 32-year-old man who had perianal abscesses drained. I suspect the etiology of these is boils and related to his nutritional status considering his homeless and it does not sound like he gets good quality food on any regular basis. I recommended sitz bath as 3 times daily using hot water compresses. He does not need antibiotics. Overall plan: Discharge home Subjective Subjective Interval history since last seen: No complaints. Patient is hoping to go home. Nursing staff reports he has not wanted any nor used any pain medication. No fevers or chills. Exam Narrative Exam Narrative: General: Nontoxic, comfortable and interactive Perianal area: 3 pieces of gauze packing removed without difficulty. Patient tolerated well. ABD pad placed over top to control any future drainage. Objective Last Vital Signs Temp 96.8 F L 03/13/23 07:44 Pulse 63 03/13/23 07:44 Resp 18 03/13/23 07:44 BP 118/68 03/13/23 07:44 Pulse Ox 97 03/13/23 07:44 Laboratory Results - last 24 hr 03/12/23 21:53 Troponin I < 50 Time Spent with Patient Time Spent with Patient: <25 minutes Time was spent: indepentently interpreting results and counseling the patient
[2023-03-13] MEDS: Ibuprofen 800 MG TAB PO (12:46)
--- NOTE | 2023-03-13 13:40 | W.PM.DSUDISC ---
Date of service: 03/13/23 Time of Service: 13:40 Discharge Plan Disposition Patient Disposition: Home Condition: Good Discharge Details Reason For Visit: Sandy-Anal Abscess Admit Date/Time: 03/12/23 07:03 Admit Provider: Bacilio Lockhart Attending Provider: Antoine Adhikari Primary Care Provider: Unknown,Unknown Home Meds and New Rx's Prescriptions: No Action ibuprofen 800 mg tablet 800 mg PO Q8H PRN (Reason: pain (scale score 4-6)) Qty: 90 3RF Rx Instructions: take w/ food. acetaminophen [Tylenol Extra Strength] 500 mg tablet 1,000 mg PO Q6H PRNQty: 90 2RF albuterol sulfate 90 mcg/actuation HFA aerosol inhaler 2 puff inhalation Q6H PRN (Reason: shortness of breath or wheezing) Qty: 8.5 0RF Discharge Instructions Additional Instructions: Sitz baths TID No Abx Packing was removed Followup PRN Return to work in 1 week Activity:: Activity as Tolerated Equipment/Supplies:: No Equipment Needed Diet:: As Tolerated Discharge Orders Discharge Orders: Discharge Order (Routine); Ordered 03/13/23 Ordered By: Antoine Adhikari DS: Diagnosis Discharge Diagnosis (1) Abscess of gluteal region: Status: Acute Asessment and Plan: Sitz baths TID No Abx Packing was removed Followup PRN Return to work in 1 week
[2023-03-13] MEDS: Acetaminophen 500 MG TAB 1000 MG PO (14:05)
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
--- NOTE | 2023-03-13 15:17 | PDOC.CMDIS ---
Date of service: 03/13/23 Time of Service: 15:17 LACE Index Scoring Tool Questions: Length of Stay (in days): 1 Was the patient admitted via the E.D.?: Yes E.D. Visits: 6 Answers: Total Score: 8 Risk of Readmission: Low Risk Care Management Discharge Plan Reason for Hospitalization: Sandy-Anal Abscess Discharge Plan: Andrzej is discharged home with no services. He will follow up with an assigned PCP, [facility] and plan of care as instructed. He is transported home by his boss' girlfriend via private vehicle. Patient/Family Education Needs: Nursing staff review discharge instructions including medications, limitations and follow up plan of care; discussion of Ask Me Three.
== END 2023-03-13 14:28 | disposition home or self-care (01) ==
LOC: ER 07:40 → MS 14:14 → ER 14:57 → SUR 14:57 → MS 14:58
PROVIDERS: Admitting Provider Surgery; Emergency Provider Emergency Medicine; Visit Provider Student in an Organized Health Care Education/Training Program
PROC: (CPT 46040; principal; 2023-03-12 13:45)
DX: L02.31 Cutaneous abscess of buttock (principal); L73.2 Hidradenitis suppurativa; J45.909 Unspecified asthma, uncomplicated; G40.909 Epilepsy, unspecified, not intractable, without status epilepticus; F43.10 Post-traumatic stress disorder, unspecified; F12.90 Cannabis use, unspecified, uncomplicated; F17.210 Nicotine dependence, cigarettes, uncomplicated; F14.90 Cocaine use, unspecified, uncomplicated
CPT/HCPCS: 10061; 45990; 00123; 36415; 80053; 87077; 96361; 96365; 96367; 96374; 96375; 96376; 99285; 71046; 74177; 84484; 85025; 87070; 87075; 87205; 93005; 93010; G0378; J0131; J1100; J1170; J1885; J2001; J2250; J2405; J3010; J3490

== ENCOUNTER 2023-03-14 12:07 | Emergency (ER) | payer MEDICAID, SELFPAY ==
[2023-03-14 12:12] VITALS: BP 121/75; PULSE 64; RESP 16; TEMP 37.2; O2SAT 97
[2023-03-14] MEDS: Ibuprofen 600 MG TAB PO (12:54)
[2023-03-14] MEDS: Acetaminophen 325 MG TAB 650 MG PO (12:54)
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
== END 2023-03-14 13:11 | disposition home or self-care (01) ==
PROVIDERS: Emergency Provider Student in an Organized Health Care Education/Training Program
DX: T81.89XA Other complications of procedures, not elsewhere classified, initial encounter (principal); K61.0 Anal abscess; F17.200 Nicotine dependence, unspecified, uncomplicated; F12.90 Cannabis use, unspecified, uncomplicated
CPT/HCPCS: 99283

== ENCOUNTER 2023-04-22 14:03 | Emergency (ER) | payer MEDICAID, SELFPAY ==
[2023-04-22 14:07] VITALS: BP 127/80; PULSE 64; RESP 18; TEMP 37.1; O2SAT 97
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
[2023-04-22] MEDS: Normal Saline 1,000 ML 1000 ML IV (14:28)
[2023-04-22 14:33] LABS: Abs Immature Grans 0.03 10^3/uL (0.0-0.06); Absolute Basophil Count 0.06 10^3/uL (0.0-0.2); Absolute Eosinophil Count 0.34 10^3/uL (0.0-0.7); Absolute Lymphocyte Count 2.62 10^3/uL (1.2-3.4); Absolute Monocyte Count 0.66 10^3/uL (0.1-0.8); Absolute Neutrophil Count 6.24 10^3/uL (1.2-6.7); Basophils % 0.6; Eosinophils % 3.4; HCT 43.4 % (40.0-50.0); HGB 14.5 g/dL (13.5-17.5); Immature Grans % 0.3; Lymphocytes % 26.3; MCHC 33.4 % (32.0-36.0); MCV 87 fL (80-95); Monocytes % 6.6; Neutrophils % 62.8; Platelet Count 257 10^3/uL (130-400); RDW 13.5 % (11.8-14.1); RDW-SD 42.5 fL; WBC 9.95 10^3/uL (4.4-10.8)
[2023-04-22 14:50] LABS: ALT 24 U/L (16-63); AST 20 U/L (15-37); Albumin 3.6 g/dL (3.4-5.0); Alkaline Phosphatase 72 U/L (46-116); Anion Gap 4.4 mmol/L (3-11); BUN 18 mg/dL (7-18); Bilirubin, Total 0.5 mg/dL (0.2-1.0); CO2 28.6 mmol/L (21.0-32.0); CREATININE 0.9 mg/dL (0.70-1.30); Calcium 9.1 mg/dL (8.5-10.1); Chloride 102 mmol/L (98-107); Glucose 95 mg/dL (74-106); Potassium 4.1 mmol/L (3.5-5.1); Sodium 135 mmol/L (136-145); Total Protein 8.7 g/dL (6.4-8.2)
[2023-04-22 15:26] VITALS: BP 112/68; PULSE 59; TEMP 36.5; O2SAT 99
--- NOTE | 2023-04-22 15:34 | NUR.NOTE ---
Referral given to Care Management for establishing primary care and diabetes management as soon as possible
== END 2023-04-22 15:51 | disposition home or self-care (01) ==
PROVIDERS: Emergency Provider Emergency Medicine
DX: E11.65 Type 2 diabetes mellitus with hyperglycemia (principal); R42 Dizziness and giddiness; R53.83 Other fatigue; T38.3X6A Underdosing of insulin and oral hypoglycemic [antidiabetic] drugs, initial encounter; F17.210 Nicotine dependence, cigarettes, uncomplicated; Z91.120 Patient's intentional underdosing of medication regimen due to financial hardship
CPT/HCPCS: 80053; 82962; 96360; 99283; 85025

== ENCOUNTER 2023-04-25 09:18 | Day surgery (SDC) | payer MEDICAID, SELFPAY ==
[2023-04-25] VITALS (8 sets, daily range): BP systolic 110–145; BP diastolic 72–89; PULSE 55–72; RESP 14–23; TEMP 35.9–36.6; O2SAT 98–100; BMI 34.3
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
--- NOTE | 2023-04-25 09:30 | DI.CT_ITS ---
Exam(s) CT PELVIC W EXAM: CT PELVIC W CLINICAL HISTORY: hx skin graft, infection abscess perineum. TECHNIQUE: Imaging Protocol: Axial computed tomography images with coronal and sagittal reformatted images were created and reviewed. CONTRAST MATERIAL: Intravenous: Omnipaque 350 Contrast volume:100 ml Contrast route:IV - Oral: / no COMPARISON: CT CT ABDOMEN PELVIS W from 03/12/2023 FINDINGS: Bladder: No gross wall thickening. No stones.No evidence of mass. Bowel: No obstruction or bowel wall thickening. Peritoneal cavity: No ascites, collection or mesenteric inflammatory response. Reproductive: Unremarkable. Bones: No acute findings. Soft tissues: Cutaneous and subcutaneous thickening along the intergluteal crease, right greater than left. Findings are greatest inferiorly on the right where there is a low-density area measuring 1. 6 x 3.7 by 1.2 cm. Not appear to represent a drainable collection. No deep abscess.. IMPRESSION: Cutaneous and subcutaneous thickening along the gluteal fold, right greater than left. Focal area of swelling in low attenuation inferiorly on the right. No deep abscess. RADIATION DOSE DELIVERED: Total DLP DATA REPOSITORY: All CT scans at this facility are submitted to the National Radiology Data Registry (NRDR) Dose Index Registry (DIR) with the [employer] (ACR). RADIATION OPTIMIZATION: All CT scans at this facility use at least one of these dose optimization te chniques: automated exposure control; mA and/or kV adjustment per patient size (includes targeted exa ms where dose is matched to clinical indication); or iterative reconstruction.
[2023-04-25 09:42] LABS: Abs Immature Grans 0.05 10^3/uL (0.0-0.06); Absolute Basophil Count 0.08 10^3/uL (0.0-0.2); Absolute Monocyte Count 0.75 10^3/uL (0.1-0.8); Absolute Neutrophil Count 8.66 10^3/uL (1.2-6.7); Basophils % 0.6; Eosinophils % 3.9; HCT 41.8 % (40.0-50.0); Immature Grans % 0.4; Lactate 1.1 mmol/L (0.6-1.4); MCH 29.2 pg (27.0-33.0); MCHC 33.5 % (32.0-36.0); MCV 87 fL (80-95); MPV 8.9 fL (8.0-11.0); Monocytes % 5.6; Neutrophils % 64.5; Platelet Count 272 10^3/uL (130-400); RDW 13.5 % (11.8-14.1); RDW-SD 43.2 fL; WBC 13.42 10^3/uL (4.4-10.8)
[2023-04-25 09:45] LABS: Absolute Eosinophil Count 0.52 10^3/uL (0.0-0.7); Absolute Lymphocyte Count 3.36 10^3/uL (1.2-3.4)
[2023-04-25 09:46] LABS: ESR 26 mm/hr (0-15)
[2023-04-25 09:59] LABS: ALT 22 U/L (16-63); AST 17 U/L (15-37); Albumin 3.5 g/dL (3.4-5.0); Alkaline Phosphatase 95 U/L (46-116); Anion Gap 8.1 mmol/L (3-11); BUN 14 mg/dL (7-18); Bilirubin, Total 0.3 mg/dL (0.2-1.0); C-Reactive Protein 1.84 mg/dL (0.0-0.3); CO2 28.9 mmol/L (21.0-32.0); Calcium 9.1 mg/dL (8.5-10.1); Chloride 103 mmol/L (98-107); Estimated GFR 103.19 (mL/min/1.73m2); Glucose 121 mg/dL (74-106); Potassium 3.8 mmol/L (3.5-5.1); Sodium 140 mmol/L (136-145); Total Protein 8.5 g/dL (6.4-8.2)
[2023-04-25] MEDS: Normal Saline 1,000 ML 1000 ML IV (10:02)
[2023-04-25] MEDS: Ketorolac 15 MG/ML VIAL IVP (10:02)
[2023-04-25] MEDS: Normal Saline - Diluent 50 ML VIAL IJ (10:15)
[2023-04-25] MEDS: Omnipaque 350 MG/ML 100 ML BTL IJ (10:28)
[2023-04-25] MEDS: Normal Saline Flush 10 ML SYR IVP ×2 (10:29→14:36)
[2023-04-25] MEDS: CLINDAMYCIN 900 MG/50 ML BAG 50 MG IVPB (10:48)
[2023-04-25 11:02] LABS: Bilirubin Negative (Negative); Blood Negative (Negative); Clarity Clear (Clear); Glucose Negative (Negative); Ketones Negative (Negative); Leukocyte Esterase Negative (Negative); Nitrite Negative (Negative); Urobilinogen 0.2 mg/dL (Up to 0.2); pH 5.5 (5-8)
--- NOTE | 2023-04-25 11:05 | DI.VRAD_ITS ---
PROCEDURE INFORMATION: Exam: CT Abdomen And Pelvis With Contrast Exam date and time: 04/25/2023 10:16 AM Age: 32 years old Clinical indication: Other: HX skin graft, infection abscess perineum TECHNIQUE: Imaging protocol: Computed tomography of the abdomen and pelvis with contrast. Contrast material: OMNIPAQUE 350; Contrast volume: 100 ml; Contrast route: INTRAVENOUS (IV); COMPARISON: CT ABDOMEN PELVIS W 03/12/2023 5:45 AM FINDINGS: Abdomen not included, not scanned. Appendix: No acute appendicitis seen. Urinary bladder: Urinary bladder appears filled. Reproductive: Prostate, seminal vesicles grossly unremarkable. Bones/joints: Evidence of small bubbly cystic lesion within left iliac bone nonspecific. Degenerative changes visualized lower lumbar spine. Soft tissues: Tiny fat containing umbilical hernia. Small focus of cutaneous or skin thickening left lower quadrant abdomen anterior abdominal wall. Slightly heterogeneous, mixed density cutaneous/subcutaneous thickening, stranding, projecting perineum extending posteriorly along crease of buttocks, intergluteal crease, [id number]-left. This is measured at up to about 2.4 cm thickness on the right side evidence slight lobular protrusion or thickened flap projecting partially exophytic, with evidence of vascularity, vessels and also with slightly hypodense ellipsoid central area or collection measured at about 1.1 cm thickness by about 2-3 cm AP. Similar appearance on the left side to a lesser degree with evidence of flap. These findings appear increased on the right side and perhaps slightly decreased on the left side compared to images from 03/12/2023. IMPRESSION: Slightly heterogeneous, mixed density cutaneous/subcutaneous thickening, stranding, projecting perineum extending posteriorly along crease of buttocks, intergluteal crease, [id number]-left. This is measured at up to about 2.4 cm thickness on the right side evidence slight lobular protrusion or thickened flap projecting partially exophytic, with evidence of vascularity, vessels and also with slightly hypodense ellipsoid central area or collection measured at about 1.1 cm thickness by about 2-3 cm AP, possibly abscess or other collection. Similar appearance on the left side to a lesser degree with evidence of flap. These findings appear increased on the right side and perhaps slightly decreased on the left side compared to images from 03/12/2023. Dictated and Authenticated by: Sridhar Thurman MD. Ordering:JOSÉ MIGUEL Lopez MD
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
[2023-04-25] MEDS: Lactated Ringers 1,000 ML 30 ML IV (12:55)
[2023-04-25] MEDS: Bupivacaine 0.25% Pres-Free 30 ML VIAL (13:25)
--- NOTE | 2023-04-25 13:55 | W.PM.OP ---
Date of service: 04/25/23 Time of Service: 13:55 Operative Note Operative Note DATE OF PROCEDURE: 04/25/23 PRE-OP DIAGNOSIS: recurrent abscess of perineum/buttock POST-OP DIAGNOSIS: same PROCEDURE: Incision and drainage of abscess SURGEON: Morenita Quijano Refer to Anesthesia Record ESTIMATED BLOOD LOSS: 5 PATHOLOGY: other (anaerobic and aerobic cultures) COMPLICATIONS: None Patient was transported to: PACU Patient's condition: stable Indications: Mr. Banda is a 32-year-old gentleman with recurrent abscesses of the perineal/left buttock area. He comes back to the emergency department with worsening pain in the area. CT scan of the pelvis shows a very small 1 x 2 cm superficial abscess. Discussed incision and drainage of the abscess in the operating room. Also recommended incision and drainage of face abscess but patient at first agreed but then refused to have his face abscess touched. I described the procedure and possible risks in detail. Patient seemed to have a good understanding of the procedure and the risks and wished to proceed with abscess drainage of his buttock only. Findings: There is a 1 x 2 cm abscess cavity within scar tissue. The cavity was only about 0.5 cm in depth. Minimal purulent discharge. Procedure Description: After informed consent was obtained in the emergency department for incision and drainage of a perineal/buttock abscess which is recurrent, and incision and drainage of a left cheek abscess which the patient signed the patient was brought to the operating room PACU area. Once in the PACU the patient stated that he did not want the abscess on his face touched. He did not want a scar. I did discuss this with the patient but at this point the patient has made his decision that he does not want this abscess taken care of. The anesthesia provider was there when the patient made this decision. The patient was then taken to the operating room and left on the gurney in a supine position. Monitors were applied and a timeout was done. The patient's name, date of , procedure to be done, site, allergies to medications, DVT prophylaxis and antibiotic prophylaxis were reviewed. Patient had been getting clindamycin in the ER prior to coming to the OR. Patient was then placed under anesthesia and intubated without difficulty. At this point we placed the patient on to the operating room table in a prone position making sure that his hips arms were padded. His buttocks and perineal area were then prepped and draped in a sterile surgical fashion. There were a few small abscesses noted that drained spontaneously with just a little bit of pressure. These were quite superficial maybe 2 mm in depth. In the area where the CT scan revealed an abscess a small incision was made with a 15 blade. There was minimal purulent discharge which was cultured both aerobic and anaerobic. The wound was probed and it was about 0.5 cm in depth. There was no tunneling appreciated. The wound was irrigated. I did not feel that packing was needed as it was so superficial. The skin was cleaned and dried. I did at this point decided to clip his hair which I did with the area sterile razor tip. The area was washed again to make sure that no hair was within the wound. Once everything was cleaned it was dried again and then a peripad was applied and mesh panties were placed on the patient. Sponge count was correct at this point. The patient was placed back onto the [facility] in a supine position. He was woken up and extubated and taken back to PACU. Patient will then recover upstairs on [facility] and be discharged home once he is fully recovered.
--- NOTE | 2023-04-25 14:34 | W.ANESPOSTOP ---
Postoperative Evaluation Date, Time and Location Date Performed: 04/25/23 Time Performed: 14:20 Patient Location: PACU Vital Signs Most Recent Imported Vital Signs: Most Recent Vital Signs Temp Pulse Resp BP Pulse Ox 35.9 C L 63 16 119/81 98 04/25/23 14:17 04/25/23 14:17 04/25/23 14:17 04/25/23 14:17 04/25/23 14:17 Pain Score Most Recent Pain Score: Most Recent Pain Score Pain Level 4 04/25/23 14:20 Assessment Mental Status: Awake (Alert & Oriented to Patient Baseline) Airway and Respiratory Function: Patent airway with normal (patient baseline) respiratory exam Cardiovascular Function: Hemodynamically Stable Hydration Status: Adequately Hydrated Nausea & Vomiting: No Nausea or Vomiting Pain: Pain is tolerable per patient Peripheral Nerve Block: Patient did not receive a nerve block
[2023-04-25] MEDS: traMADol 50 MG TAB PO (14:36)
--- NOTE | 2023-04-25 14:47 | W.PM.DSUDISC ---
Date of service: 04/25/23 Time of Service: 14:47 Discharge Plan Disposition Patient Disposition: Home Condition: Stable Discharge Details Reason For Visit: perineal abscess Attending Provider: Morenita Quijano Primary Care Provider: Unknown,Unknown Home Meds and New Rx's Prescriptions: New tramadol 50 mg tablet 50 mg PO Q6H PRNQty: 14 0RF sulfamethoxazole-trimethoprim 800-160 mg tablet 1 tab PO BID 7 Days Qty: 14 0RF Continued divalproex [Depakote] 500 mg tablet,delayed release (DR/EC) 500 mg PO TID albuterol sulfate 90 mcg/actuation HFA aerosol inhaler 2 puff inhalation Q6H PRN (Reason: shortness of breath or wheezing) Qty: 8.5 0RF ibuprofen 800 mg tablet 800 mg PO Q8H PRN (Reason: pain (scale score 4-6)) Qty: 90 3RF Rx Instructions: take w/ food. acetaminophen [Tylenol Extra Strength] 500 mg tablet 1,000 mg PO Q8H PRNQty: 90 2RF Discharge Instructions Additional Instructions: Activity at Home after surgery: 1. As tolerated Diet, Nutrition, & wound healin. Avoid alcohol until after you are recovered from your surgery 2. Make sure to eat plenty of lean protein (meat, fish, eggs, cottage cheese, beans) 3. Eat a variety of fruits and vegetables. Eat plenty of high fiber foods to avoid constipation. 4. Drink plenty of liquids to stay hydrated and avoid constipation Pain Medications: 1. Tylenol 650mg every 6 hours as needed and Ibuprofen 600 mg every 6 hours as needed. You may alternate between the 2 medications every 3 hours 2. If a narcotic has been prescribed take as directed only for breakthrough pain For Constipation: 1. Take Milk of Magnesia or MiraLax as needed for constipation Other: 1. Please shower daily and keep the area clean Wound Care: 1. Place a peripad into your underwear to catch any discharge for the next few days Please call our office if you develop: 1. Fevers >101.5 2. Nausea or Vomiting 3. Worsening pain 4. Redness and thick discharge from the wounds If after hours please call the Hospital at and ask to speak to the on-call surgeon Stand Alone Forms: Nursing Discharge Form Referrals: Morenita Quijano MD [ [facility] STAFF PHYSICIAN] - (Please call on Wednesday to make a follow up appointment. ) Activity:: Activity as Tolerated Shower/Bathe:: 24 hours Diet:: As Tolerated Discharge Orders Discharge Orders: Discharge Order (Routine); Ordered 04/25/23 Ordered By: Morenita Quijano DS: Diagnosis Discharge Diagnosis (1) Abscess of perineum: Status: Acute Asessment and Plan: The patient is doing well post-op from their incision and drainage of abscess surgery.? He is having no nausea or vomiting. he is tolerating liquids and a snack. The pt is not having any chest pain or SOB.? Their pain is adequately controlled. ?HEENT:? no eye pain/drainage/redness/swelling. Mild sore throat ?Cardio- NSR, no chest pain, BP stable- see VS record ?Pulm: no sob or productive cough. No hemoptysis ?Incision- dressing is c/d/i w/ no excessive bleeding or drainage ?I discussed with the patient the findings at the time of surgery and the patient?s progress. ?We reviewed expectations at home; what the patient could expect for recovery time, and in the post-operative period.? We discussed the importance of walking to avoid blood clots and pneumonia.? We discussed and reviewed the patient's post-operative wound care and dressing needs.?? We reviewed their step-bowers pain management plan, Rx called to the pharmacy of their choice.? We reviewed activity and limitations-see discharge instructions. We reviewed warning signs, and when to seek medical attention- see d/c instructions.?? Patient was given a postoperative follow-up appointment. Patient verbalized understanding of their postoperative instructions, how do to take care of themselves and their incision, and the pain management plan. Please see discharge instructions.? (2) Abscess of face: Status: Acute
[2023-04-27 10:56] LABS: Syphilis Serology (RPR) Positive (Negative)
[2023-04-27 14:54] LABS: Chlamydia Result Negative (Negative); GC Result Negative (Negative)
[2023-04-29 10:03] LABS: RPR w/Reflex Positive (Negative)
== END 2023-04-25 15:18 | disposition home or self-care (01) ==
LOC: ER 11:45 → SUR 12:58 → MS 14:18
PROVIDERS: Emergency Provider Physician Assistant; Visit Provider Surgery
PROC: (CPT 46040; principal; 2023-04-25 12:20)
DX: L02.215 Cutaneous abscess of perineum (principal); L02.01 Cutaneous abscess of face; Z53.29 Procedure and treatment not carried out because of patient's decision for other reasons; F17.210 Nicotine dependence, cigarettes, uncomplicated; F12.90 Cannabis use, unspecified, uncomplicated; Z59.02 Unsheltered homelessness
CPT/HCPCS: 10060; 0064U; 80053; 85652; 86593; 87040; 87077; 87491; 87591; 72193; 81003; 83605; 85025; 86140; 86592; 87070; 87075; 87186; 87205; G0378; J1100; J1885; J2405; J2704; J3490

== ENCOUNTER 2023-05-21 22:43 | Emergency (ER) | payer MEDICAID, SELFPAY ==
[2023-05-21 22:46] VITALS: BP 126/83; PULSE 83; RESP 18; TEMP 36.8; O2SAT 98
[2023-05-21 22:49] VITALS: BP 126/83; PULSE 84; RESP 18; O2SAT 97
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
[2023-05-21] MEDS: Sulfameth/Trimeth DS TAB 1 TAB PO (23:31)
[2023-05-21] MEDS: Cephalexin 500 MG CAP PO (23:31)
== END 2023-05-21 23:45 | disposition home or self-care (01) ==
PROVIDERS: Emergency Provider Emergency Medicine Emergency Medical Services
DX: L03.012 Cellulitis of left finger (principal); L73.2 Hidradenitis suppurativa
CPT/HCPCS: 10060; 64450

== ENCOUNTER 2023-07-28 15:16 | Outpatient (REF) | payer MEDICAID, SELFPAY | END 2023-07-28 15:17 | disposition home or self-care (01) | LOC: LBN 15:16 | PROVIDERS: PCP Family Medicine; Visit Provider Physician Assistant Medical | DX: L73.2 Hidradenitis suppurativa (principal) | CPT/HCPCS: 87070; 87205 ==

== ENCOUNTER 2023-12-06 03:43 | Emergency (ER) | payer MEDICAID, SELFPAY ==
--- NOTE | 2023-12-06 03:30 | RT.EKG_ITS ---
APPROVED REPORT Exam: Resting ECG Reason for Exam: CHEST PAIN Patient Location: E HR:51 bpm ECG Measurements Heart Rate 51 AXIS TX 163 P 45 QRSd 90 QRS 66 QT 412 T 4 QTc 381 Conclusion Sinus bradycardia...rate< [address] segment or T wave abnormalities to suggest occlusive [place]
[2023-12-06 03:43] VITALS: BP 114/63; PULSE 56; RESP 16; TEMP 35.7; O2SAT 98
[2023-12-06 03:46] VITALS: RESP 19
[2023-12-06 03:47] VITALS: BP 114/63; PULSE 53; RESP 10
[2023-12-06 03:50] VITALS: RESP 0
[2023-12-06 03:51] VITALS: RESP 14
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
--- NOTE | 2023-12-06 04:15 | DI.RAD_ITS ---
Exam(s) XR CHEST 2V PA LATERAL EXAM: XR CHEST 2V PA LATERAL CLINICAL HISTORY: chest pain TECHNIQUE: 2D digital imaging was performed of the chest. Two images were obtained. PA and lateral views were obtained. COMPARISON: CR,XR XR CHEST 2V PA LATERAL from 03/12/2023 FINDINGS: MEDIASTINUM: Normal. HEART: Normal. PULMONARY VASCULATURE: Normal. LUNGS: Clear. PLEURAL SPACE: No pleural effusion or pneumothorax. BONE:Within normal limits for the patient's age. OTHER FINDINGS:Normal. IMPRESSION: No acute pulmonary findings. DATA REPOSITORY: RADIATION DOSE DELIVERED:
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
[2023-12-06] MEDS: Ketorolac 15 MG/ML VIAL IVP (04:30)
[2023-12-06] MEDS: oxyCODONE 5 MG TAB PO ×2 (04:30→06:22)
[2023-12-06 04:41] LABS: Lactate 0.5 mmol/L (0.6-1.4)
[2023-12-06 04:43] LABS: Abs Immature Grans 0.06 10^3/uL (0.0-0.06); Absolute Basophil Count 0.07 10^3/uL (0.0-0.2); Basophils % 0.5 %; Eosinophils % 3.4 %; HCT 39.8 % (40.0-50.0); HGB 13.4 g/dL (13.5-17.5); Immature Grans % 0.4 %; MCH 29.6 pg (27.0-33.0); MCHC 33.7 % (32.0-36.0); MCV 88 fL (80-95); Monocytes % 6.5 %; Neutrophils % 64.2 %; Platelet Count 271 10^3/uL (130-400); RBC 4.52 10^6/uL (4.36-5.78); RDW 13.9 % (11.8-14.1); RDW-SD 44.8 fL; WBC 14.26 10^3/uL (4.4-10.8)
[2023-12-06] MEDS: Omnipaque 350 MG/ML 100 ML BTL IJ (04:45)
[2023-12-06] MEDS: Normal Saline - Diluent 50 ML VIAL IJ (04:46)
[2023-12-06 04:47] LABS: Absolute Eosinophil Count 0.48 10^3/uL (0.0-0.7); Absolute Lymphocyte Count 3.57 10^3/uL (1.2-3.4); Absolute Monocyte Count 0.93 10^3/uL (0.1-0.8); Absolute Neutrophil Count 9.15 10^3/uL (1.2-6.7)
[2023-12-06] MEDS: Normal Saline Flush 10 ML SYR IVP (04:47)
[2023-12-06 04:48] LABS: ESR 57 mm/hr (0-15)
[2023-12-06 05:04] LABS: ALT 22 U/L (16-63); AST 15 U/L (15-37); Albumin 3.2 g/dL (3.4-5.0); Alkaline Phosphatase 81 U/L (46-116); Anion Gap 9.4 mmol/L (3-11); BUN 17 mg/dL (7-18); Bilirubin, Total 0.34 mg/dL (0.2-1.0); CO2 27.6 mmol/L (21.0-32.0); CREATININE 0.9 mg/dL (0.70-1.30); Calcium 8.8 mg/dL (8.5-10.1); Chloride 103 mmol/L (98-107); Estimated GFR 116.37 (mL/min/1.73m2); Glucose 89 mg/dL (74-106); Potassium 3.9 mmol/L (3.5-5.1); Sodium 140 mmol/L (136-145); Total Protein 8.5 g/dL (6.4-8.2); Troponin I < 50 ng/L (< or =60)
[2023-12-06 05:13] LABS: C-Reactive Protein 4.95 mg/dL (<or=0.5)
[2023-12-06 05:18] LABS: Procalcitonin < 0.1 ng/mL
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
--- NOTE | 2023-12-06 05:39 | DI.VRAD_ITS ---
PROCEDURE INFORMATION: Exam: XR Chest Exam date and time: 12/06/2023 5:22 AM Age: 33 years old Clinical indication: Other: Chest pain TECHNIQUE: Imaging protocol: Radiologic exam of the chest. Views: 2 views. COMPARISON: CR XR CHEST 2V PA LATERAL 03/12/2023 10:17 PM FINDINGS: Lungs: No pulmonary consolidation is seen. Pleural spaces: No pleural effusion or pneumothorax is demonstrated. Heart/Mediastinum: The heart appears normal in size. Bones/joints: The visualized bony structures appear grossly intact, as seen. IMPRESSION: No active disease is seen in the chest. Dictated and Authenticated by: Reyes Lorenz MD. Ordering:FRANCHESKA Alvarado MD
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
[2023-12-06] MEDS: Cephalexin 500 MG CAP PO (06:22)
[2023-12-06 06:37] VITALS: BP 118/66; PULSE 54; RESP 14; O2SAT 98
== END 2023-12-06 06:24 | disposition home or self-care (01) ==
LOC: ER 06:23
PROVIDERS: Emergency Provider Student in an Organized Health Care Education/Training Program; PCP Family Medicine
DX: L02.31 Cutaneous abscess of buttock (principal); R07.9 Chest pain, unspecified
CPT/HCPCS: 36415; 80053; 84145; 85652; 93005; 96374; 99285; 71046; 74177; 83605; 84484; 85025; 86140; 93010; 99283; J1885; J3490

== ENCOUNTER 2023-12-10 15:42 | Observation (INO) | payer MEDICAID, SELFPAY ==
[2023-12-10] VITALS (75 sets, daily range): BP systolic 84–119; BP diastolic 37–79; PULSE 40–120; RESP 10–24; TEMP 36.5–37; O2SAT 92–100; BMI 33.8
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
[2023-12-10] MEDS: Lactated Ringers 1,000 ML 80 ML IV ×2 (12:40→15:22)
[2023-12-10] MEDS: Bupivacaine LIPOSOME/PF 133 MG/10 ML VIAL IJ (13:37)
[2023-12-10] MEDS: Normal Saline Flush 10 ML SYR (13:41)
[2023-12-10] MEDS: ePHEDrine 25 MG/5 ML Syringe IVP (14:51)
[2023-12-10] MEDS: HYDROmorphone 2 MG/ML SYR IVP ×2 (15:04→15:14)
[2023-12-10] MEDS: Normal Saline 10 ML VIAL IJ (15:04)
--- NOTE | 2023-12-10 15:04 | W.ANESPOSTOP ---
Postoperative Evaluation Date, Time and Location Date Performed: 12/10/23 Time Performed: 15:04 Patient Location: PACU Vital Signs Most Recent Imported Vital Signs: Most Recent Vital Signs Temp Pulse Resp BP Pulse Ox 36.7 C 41 L 18 105/56 L 98 12/10/23 15:02 12/10/23 14:56 12/10/23 14:56 12/10/23 14:56 12/10/23 14:56 Pain Score Most Recent Pain Score: Most Recent Pain Score Pain Level 10 12/10/23 15:02 Assessment Mental Status: Awake (Alert & Oriented to Patient Baseline) Airway and Respiratory Function: Patent airway with normal (patient baseline) respiratory exam Cardiovascular Function: Hemodynamically Stable Hydration Status: Adequately Hydrated Nausea & Vomiting: No Nausea or Vomiting Pain: Pain is tolerable per patient Peripheral Nerve Block: Patient did not receive a nerve block
--- NOTE | 2023-12-10 15:44 | W.PM.OP ---
Date of service: 12/10/23 Time of Service: 13:00 Operative Note Operative Note PRE-OP DIAGNOSIS: Hidradenitis with acute inflammation and abscess formation PROCEDURE: Incision and drainage of buttock abscesses SURGEON: Rosalind KELLY ANESTHESIA TYPE: Local By Surgeon and General LMA/ETT Refer to Anesthesia Record PATHOLOGY: none sent COMPLICATIONS: None Patient was transported to: PACU Patient's condition: stable Indications: 33-year-old male with known hidradenitis. He presents every few months with acute abscess formation in the diseased area of the groin in the perineum. He came in this morning complaining of acute pain that has been going on for few days. evaluation in the office by the physician trading assistant revealed some significant induration and areas of fluctuance. Decision was made to proceed to the operating room for incision and drainage. Procedure Description: After obtaining informed consent, patient was brought back to the operating room. He was placed under general anesthesia with endotracheal intubation. He was then turned prone onto the examining room table. All points of contact well-padded. His buttock and perianal tissue was prepped and draped in sterile manner. Timeout was performed. I began by making an incision on the right buttock over the area with most fluctuance. I probed down to a fairly significant cavity about 3 to 4 cm tracking medial under the surface. I also created stab wounds and 2 other small areas above and below the larger incision. On probing these all seem to connect to the same larger cavity. There is no significant amount of purulence that was drained. There was small pockets. I then performed a single incision on the left buttock over an area of fluctuance. Here it probed a fairly deeper cavity of about 3 to 4 cm which tracked into the soft tissue. Again there was a lot of induration of the dermis but the subcutaneous tissue was soft and there was no significant collection of pus. Nahomi had a area of significant induration on the right side adjacent to the perineum. There was a fairly wide opening of the fistula tract and I probed this under the surface again for about a two 3 cm distance. I then irrigated all of the incision sites. I used cautery to obtain hemostasis at the skin edges on the right buttock. I used half-inch packing tape and packed each incision site. I then injected a total of 30 mL of Exparel diluted 50% with normal saline into the skin and soft tissue around all the incisions. We covered the area with an ABD and placed mesh underwear. Patient was then turned supine onto the stretcher and extubated without complication. He tolerated well. He went to recovery in stable condition. Disposition: Patient will be admitted to the [facility] for overnight observation on the general surgery service.
[2023-12-10] MEDS: fentaNYL 100 MCG/2 ML VIAL IVP (16:04)
== END 2023-12-10 17:27 | disposition left against medical advice (07) ==
LOC: MS 15:58
PROVIDERS: Admitting Provider Surgery; PCP Family Medicine; Visit Provider Surgery
PROC: (CPT 46040; principal; 2023-12-10 12:30)
DX: L73.2 Hidradenitis suppurativa (principal); L02.31 Cutaneous abscess of buttock; Z59.02 Unsheltered homelessness; F12.90 Cannabis use, unspecified, uncomplicated; F17.210 Nicotine dependence, cigarettes, uncomplicated; E11.9 Type 2 diabetes mellitus without complications; F43.10 Post-traumatic stress disorder, unspecified; G40.909 Epilepsy, unspecified, not intractable, without status epilepticus; J45.909 Unspecified asthma, uncomplicated
CPT/HCPCS: 10061; 00123; C9290; G0378; J1100; J1170; J1885; J2001; J2250; J2405; J2704; J3010

== ENCOUNTER 2024-01-27 09:57 | Inpatient (IN) | payer MEDICAID, SELFPAY ==
[2024-01-27 10:02] VITALS: BP 114/64; PULSE 74; RESP 12; TEMP 36.3; O2SAT 97
[2024-01-27 11:11] VITALS: RESP 16
[2024-01-27 11:18] LABS: Abs Immature Grans 0.06 10^3/uL (0.0-0.06); Absolute Basophil Count 0.06 10^3/uL (0.0-0.2); Absolute Eosinophil Count 0.24 10^3/uL (0.0-0.7); Absolute Lymphocyte Count 2.04 10^3/uL (1.2-3.4); Absolute Neutrophil Count 11.81 10^3/uL (1.2-6.7); Basophils % 0.4 %; Eosinophils % 1.6 %; HCT 44.5 % (40.0-50.0); Immature Grans % 0.4 %; Lymphocytes % 13.7 %; MCH 29.6 pg (27.0-33.0); MCHC 33.7 % (32.0-36.0); MCV 88 fL (80-95); Monocytes % 4.7 %; Neutrophils % 79.2 %; Platelet Count 310 10^3/uL (130-400); RBC 5.06 10^6/uL (4.36-5.78); RDW 13.5 % (11.8-14.1); RDW-SD 43.6 fL; WBC 14.91 10^3/uL (4.4-10.8)
[2024-01-27 11:20] LABS: ESR 58 mm/hr (0-15)
[2024-01-27] MEDS: MORPHine 10 MG/ML VIAL 6 MG IVP ×2 (11:41→14:10)
[2024-01-27] MEDS: Ondansetron 4 MG/2 ML VIAL IVP (11:42)
[2024-01-27 11:52] LABS: C-Reactive Protein 2.42 mg/dL (<or=0.5)
[2024-01-27 11:54] LABS: ALT 17 U/L (16-63); AST 16 U/L (15-37); Albumin 3.6 g/dL (3.4-5.0); Alkaline Phosphatase 86 U/L (46-116); Anion Gap 8.4 mmol/L (3-11); BUN 9 mg/dL (7-18); Bilirubin, Total 0.34 mg/dL (0.2-1.0); CO2 23.6 mmol/L (21.0-32.0); CREATININE 0.9 mg/dL (0.70-1.30); Calcium 9.4 mg/dL (8.5-10.1); Chloride 105 mmol/L (98-107); Estimated GFR 116.37 (mL/min/1.73m2); Glucose 97 mg/dL (74-106); Potassium 3.9 mmol/L (3.5-5.1); Sodium 137 mmol/L (136-145); Total Protein 9.3 g/dL (6.4-8.2)
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
[2024-01-27 12:14] LABS: Procalcitonin < 0.1 ng/mL
--- NOTE | 2024-01-27 13:11 | DI.CT_ITS ---
Exam(s) CT PELVIC W EXAM: CT PELVIC W CLINICAL HISTORY: abscess ?. TECHNIQUE: Imaging Protocol: Axial computed tomography images with coronal and sagittal reformatted images were created and reviewed. CONTRAST MATERIAL: Intravenous: Omnipaque 350 Contrast volume: 85 Oral: no COMPARISON: CT CT CHEST/ABD/PEL W from 09/13/2022 FINDINGS: Bladder: No gross wall thickening. No stones.No evidence of mass. Bowel: No obstruction or bowel wall thickening. Peritoneal cavity: No ascites, collection or mesenteric inflammatory response. Reproductive: Unremarkable. Vasculature: No evidence of aortic or iliac artery aneurysm. Bones: No acute findings. Soft tissues: Skin thickening in the bilateral gluteal folds. Small focal abscess within the skin an d subcutaneous fat of the left gluteal fold measuring 18 x 9 by 14 millimeters. IMPRESSION: small abscess within the subcutaneous fat of the left gluteal fold. No intrapelvic abnormalities. Findings called to ER provider. RADIATION DOSE DELIVERED: 199.32mGy.cm Total DLP DATA REPOSITORY: All CT scans at this facility are submitted to the National Radiology Data Registry (NRDR) Dose Index Registry (DIR) with the [employer] (ACR). RADIATION OPTIMIZATION: All CT scans at this facility use at least one of these dose optimization te chniques: automated exposure control; mA and/or kV adjustment per patient size (includes targeted exa ms where dose is matched to clinical indication); or iterative reconstruction.
[2024-01-27] MEDS: Omnipaque 350 MG/ML 500 ML BTL-Imaging package IJ (13:31)
[2024-01-27] MEDS: Normal Saline - Diluent 50 ML VIAL IJ (13:34)
[2024-01-27 13:45] VITALS: RESP 16; O2SAT 99
[2024-01-27 15:11] VITALS: BP 126/61; PULSE 59; RESP 16; TEMP 36.2; O2SAT 99
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
[2024-01-27 17:09] VITALS: PULSE 59; RESP 16; TEMP 36.2; O2SAT 99
[2024-01-27 17:12] VITALS: BP 108/54; PULSE 52; RESP 17; TEMP 36.6; O2SAT 98
[2024-01-27] MEDS: Insulin Aspart 300 UNITS/3 ML PEN SC (17:54)
[2024-01-27] MEDS: Acetaminophen 500 MG TAB 1000 MG PO (17:54)
[2024-01-27] MEDS: Enoxaparin 40 MG/0.4 ML SYR SC (17:55)
[2024-01-27] MEDS: PIPERACILLIN/TAZO 3.375 GM in Normal Saline 50 ML IVPB (17:55)
[2024-01-27] MEDS: DEXTROSE 5%-0.45% SALINE 1,000 ML 30 ML IV (17:56)
[2024-01-27] MEDS: Normal Saline Flush 10 ML SYR IVP (17:56)
--- NOTE | 2024-01-27 18:25 | NUR.NOTE ---
Patient is admitted in [id number]., after the scheduled 1600 hrs.meds administered, FS taken, it was 292 and Aspart insulin 4 units as coveraged given per sliding scale. Patient asked this teletypewriter installer to rechecked BS just for his peace of mind, Education provided but has poor insight on it. Increasingly agitated, requested to talk to human resources department supervisor since this nurse refused to recheck again his sugar. Security came and patient wants to go home w/out signing any papers as AMA., escorted by security nurse to be out of building at 18:22 hrs.
== END 2024-01-27 18:23 | disposition left against medical advice (07) | DRG 603 ==
LOC: ER 16:29 → MS 18:23
PROVIDERS: Admitting Provider Surgery; Emergency Provider Emergency Medicine; PCP Family Medicine; Visit Provider Surgery
DX: L02.31 Cutaneous abscess of buttock (principal); L73.2 Hidradenitis suppurativa; E11.9 Type 2 diabetes mellitus without complications; F17.290 Nicotine dependence, other tobacco product, uncomplicated; F12.90 Cannabis use, unspecified, uncomplicated; F43.10 Post-traumatic stress disorder, unspecified; J45.909 Unspecified asthma, uncomplicated; G40.909 Epilepsy, unspecified, not intractable, without status epilepticus
CPT/HCPCS: 00123; 36415; 36416; 80053; 82962; 84145; 85652; 96374; 96375; 99285; J1650; 72193; 85025; 86140; J1815; J2270; J2405; J2543

== ENCOUNTER 2024-01-27 19:38 | Observation (INO) | payer MEDICAID, SELFPAY ==
[2024-01-27 19:29] VITALS: BP 124/83; PULSE 72; RESP 22; TEMP 36.8; O2SAT 98
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
[2024-01-27 21:52] VITALS: BP 128/52; PULSE 61; RESP 14; TEMP 36.7; O2SAT 99
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
[2024-01-27 22:19] VITALS: BP 124/82; PULSE 55; RESP 18; TEMP 36.6; O2SAT 99
[2024-01-28] MEDS: PIPERACILLIN/TAZO 3.375 GM in Normal Saline 50 ML IVPB ×2 (00:04→06:20)
[2024-01-28] MEDS: Acetaminophen 500 MG TAB 1000 MG PO ×2 (00:08→06:09)
[2024-01-28] MEDS: FAMOTIDINE 20 MG in Normal Saline 100 ML 400 MG IVPB (01:15)
[2024-01-28] MEDS: DEXTROSE 5%-0.45% SALINE 1,000 ML 75 ML IV (02:25)
[2024-01-28] MEDS: MORPHine 2 MG/ML SYR IVP (06:09)
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
[2024-01-28 07:25] VITALS: BMI 32.1
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
--- NOTE | 2024-01-28 08:28 | PGE_ITS ---
Date of Service Date of service: 01/28/24 Time of Service: 08:28 Assessment and Plan Assessment and plan (1) Abscess of buttock, left: Status: Acute Assessment and plan: outpatient treatment with po antibiotics (2) Medical non-compliance: Status: Acute Assessment and plan: discharge (3) Aggressive behavior: Status: Acute Assessment and plan: discharge Subjective Subjective Interval history since last seen: Patient is a 33-year-old male with a known history of hidradenitis, who was admitted yesterday from the emergency department with complaints of left buttock pain and drainage for 1-1/[address] scan of the pelvis demonstrated a less than 2 cm abscess of the left buttock. The patient presented hemodynamically stable, with leukocytosis and elevated markers of inflammation. For pain control he required IV pain medication in the emergency department therefore, the patient was admitted for further care. The patient was admitted with IV antibiotics and IV fluids. The OR schedule did not permit for same-day surgery therefore, surgery was planned for the a.m. He was allowed a meal at night and nothing to eat or drink after midnight. The patient was agreeable with this plan on admission. Apparently, overnight the patient became belligerent with the nursing staff on the med-surgical loera. He was upset that his blood glucose levels were not being checked more frequently than what was ordered in the chart. Per nursing staff the patient wanted his blood glucose levels checked every 10 minutes. The patient became irate and left AMA. He was escorted out by security. Later, in the middle the night the patient presented to the emergency department again. The Emergency department physician indicated that the patient had calm down and requested that the patient be readmitted. The patient was subsequently readmitted with the previous plan in place for surgery in the a.m. I met with the patient again in the PACU for a preoperative examination explained, explanation of the procedure and to sign consent forms. Immediately the patient demanded that I perform surgery on bilateral buttock. I indicated to the patient that based on yesterday's examination and CT scan findings that surgery is only indicated for the left buttock. I explained to the patient that I will check the right buttock intraoperatively however, if there are no findings intraopertively that support a surgical incision than, an incision on the right buttock that it will not be performed. At this juncture the patient became very upset and verbally belligerent towards me. He said, If you are not going to do the surgery right then do not waste my time. I explained that I will on do what is clinically indicated. The patient was agreeable to let me examine him awake in PACU with nursing staff present. When I attempted to examine the patient he again became very belligerent and verbally abusive with me. He told me that I am being too rough with him. The patient said, I will justine you. At this juncture I informed the patient that this is not a safe doctor-patient relationship and that we will not be proceeding with surgery. I informed the patient that I am now leaving the PACU area ask to de-escalate this conversation. Nursing and Security were present and winesses. Risk management's presence was requested. With nursing present I explained to security and Risk management what had just occurred. After further discussing the case with risk-management I made the decision that the patient is hemodynamically stable and about his wits. Due to the patient's belligerence and noncompliant behavior it is unsafe to proceed with surgery therefore, he can be treated with oral antibiotics and follow-up as an outpatient or in the ER as needed. Discharge orders were entered in the chart with a prescription for Bactrim travis ble strength twice daily for 7 days. Exam Narrative Exam Narrative: uncooperative Objective Last Vital Signs Temp 97.9 F 01/27/24 22:19 Pulse 55 L 01/27/24 22:19 Resp 18 01/27/24 22:19 BP 124/82 01/27/24 22:19 Pulse Ox 99 01/27/24 22:19 PAWSS Have you Been Recently Intoxicated or Drunk Within the Last 30 days?: No Have you Ever Experienced Previous Episodes of Alcohol Withdrawal?: No Have you ever Experienced Withdrawal Seizures?: No Have you ever Experienced Delirium Tremens(DT)s?: No Have you ever undergone Alcohol Rehabilitation Treatment (i.e, inpt ot outpatient treatment programs)?: No Have you ever Experienced Blackouts?: No Have you ever Combined Alcohol with other Downers within the last 90 days?: No Have you ever Combined Alcohol with any other Substance of Abuse during the last 90 days?: No Positive Blood Alcohol level on Presentation? [PCS.BAL]: No Evidence of Increased Autonomic Activity (i.e. HR>120, tremor, sweating, agitation, nausea)?: No Result: 0 Time Spent with Patient Time Spent with Patient: <25 minutes Time was spent: preparing to see the patient(eg.review tests), obtaining and/or reviewing separately otained hiistory, referring, communicating with other health neonatal intensive care unit nurse, indepentently interpreting results, counseling the patient and care coordination
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
== END 2024-01-28 08:32 | disposition home or self-care (01) ==
LOC: ER 21:38 → MS 22:13
PROVIDERS: Admitting Provider Surgery; Emergency Provider Emergency Medicine; PCP Family Medicine; Visit Provider Surgery
DX: L02.31 Cutaneous abscess of buttock (principal); Z91.199 Patient's noncompliance with other medical treatment and regimen due to unspecified reason; R46.89 Other symptoms and signs involving appearance and behavior; Z59.02 Unsheltered homelessness; Z59.41 Food insecurity; E11.9 Type 2 diabetes mellitus without complications; J45.909 Unspecified asthma, uncomplicated; G40.909 Epilepsy, unspecified, not intractable, without status epilepticus; Z79.899 Other long term (current) drug therapy
CPT/HCPCS: 00123; 36415; 36416; 96365; 96366; 96368; 96375; 99285; G0378; J0665; J1100; J1815; J2250; J2270; J2405; J2543; J2704; J3010

== ENCOUNTER 2024-04-28 12:57 | Outpatient (REF) | payer MEDICAID, SELFPAY ==
[2024-05-01 12:49] LABS: Chlamydia Result Negative (Negative); GC Result Negative (Negative)
== END 2024-04-28 12:58 | disposition home or self-care (01) ==
LOC: LBN 12:57
PROVIDERS: PCP Family Medicine; Visit Provider Family Medicine
DX: Z11.3 Encounter for screening for infections with a predominantly sexual mode of transmission (principal)
CPT/HCPCS: 87491; 87591

== ENCOUNTER 2024-07-25 03:01 | Outpatient (CLI) | payer MEDICAID, SELFPAY ==
[2024-07-25 23:51] LABS: Hepatitis C Ab w Rflx HCV PCR Negative (Negative)
[2024-07-26 00:12] LABS: HBs Antibody, Qual Positive (See Note); HBs Antibody, Quant 18.7 mIU/mL (See Note); Hepatitis B Core Antibody Negative (Negative); Hepatitis B surface Ag Negative (Negative); Hepatitis C Ab w Rflx HCV PCR Negative (Negative)
[2024-07-26 10:14] LABS: Syphilis Serology (RPR) Positive (Negative)
[2024-07-26 21:30] LABS: HIV-1/2 Ag & Ab Screen Negative (Negative)
[2024-07-28 11:11] LABS: RPR w/Reflex Positive (Negative)
== END 2024-07-25 03:02 | disposition home or self-care (01) ==
PROVIDERS: PCP Family Medicine; Referring Provider Family Medicine; Visit Provider Family Medicine
DX: Z11.3 Encounter for screening for infections with a predominantly sexual mode of transmission (principal)
CPT/HCPCS: 0064U; 36415; 86593; 86704; 86706; 86803; 87340; 87389; 86592

== ENCOUNTER 2024-09-01 00:45 | Outpatient (RCR) | payer SELFPAY | END 2024-09-13 23:59 | disposition home or self-care (01) | LOC: INF 00:45 | PROVIDERS: PCP Family Medicine; Visit Provider Family Medicine | DX: A53.9 Syphilis, unspecified (principal) | CPT/HCPCS: 96372; J0561 ==

== ENCOUNTER 2024-11-09 21:54 | Emergency (ER) | payer SELFPAY ==
[2024-11-09 21:57] VITALS: PULSE 69; RESP 16; TEMP 36.6; O2SAT 98
[2024-11-09 21:59] VITALS: PULSE 69; RESP 16; TEMP 36.6; O2SAT 98
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
[2024-11-09] MEDS: Clindamycin 150 MG CAP, 12 CAPS/BTL 450 MG PO (22:57)
[2024-11-09] MEDS: Acetaminophen 500 MG TAB 1000 MG PO (22:58)
[2024-11-09] MEDS: oxyCODONE 5 MG TAB PO (22:59)
[2024-11-09] MEDS: Ketorolac 15 MG/ML VIAL IM (23:01)
[2024-11-09 23:07] VITALS: BP 124/83; PULSE 63; RESP 18; O2SAT 96
--- NOTE | 2024-11-10 06:19 | W.ED.PROC ---
Date of service: 11/09/24 Medical Decision Making Quality:SDOH Health Related Social Needs: Health related social needs details needs medications when he will be discharged. Narrative Narrative Narrative: POCUS soft tissue Left buttock: Skin and subcutaneous visualized: Cellulitis, cobblestoning, no drainable fluid collection Right buttock: Skin and subcutaneous visualized: Cellulitis, cobblestoning, no drainable fluid collection
== END 2024-11-09 23:07 | disposition home or self-care (01) ==
LOC: ER 23:11
PROVIDERS: Emergency Provider Student in an Organized Health Care Education/Training Program; PCP Family Medicine
DX: L03.317 Cellulitis of buttock (principal); L02.31 Cutaneous abscess of buttock; L73.2 Hidradenitis suppurativa; E11.9 Type 2 diabetes mellitus without complications; F17.290 Nicotine dependence, other tobacco product, uncomplicated; Z79.84 Long term (current) use of oral hypoglycemic drugs
CPT/HCPCS: 96374; 99284; J1885

== ENCOUNTER 2025-03-10 11:51 | Emergency (ER) | payer SELFPAY ==
[2025-03-10 11:54] VITALS: BP 115/73; PULSE 67; RESP 16; TEMP 36.4; O2SAT 97
[2025-03-10 12:03] VITALS: BP 115/73; PULSE 67; RESP 16; TEMP 36.4; O2SAT 97
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
[2025-03-10 12:38] LABS: Abs Immature Grans 0.04 10^3/uL (0.0-0.06); HCT 41.1 % (40.0-50.0); HGB 14.2 g/dL (13.5-17.5); Immature Grans % 0.3 %; MCH 29.7 pg (27.0-33.0); MCHC 34.5 % (32.0-36.0); MCV 86 fL (80-95); MPV 8.9 fL (8.0-11.0); Platelet Count 295 10^3/uL (130-400); RBC 4.78 10^6/uL (4.36-5.78); RDW 13.2 % (11.8-14.1); RDW-SD 41.1 fL; WBC 11.55 10^3/uL (4.4-10.8)
[2025-03-10] MEDS: Normal Saline Flush 10 ML SYR IVP (12:38)
[2025-03-10] MEDS: Normal Saline - Diluent 50 ML VIAL IJ (12:38)
[2025-03-10] MEDS: Omnipaque 350 MG/ML 100 ML BTL IJ (12:38)
[2025-03-10 12:50] LABS: ALT 22 U/L (16-63); AST 17 U/L (15-37); Albumin 3.6 g/dL (3.4-5.0); Alkaline Phosphatase 80 U/L (46-116); Anion Gap 7.7 mmol/L (3-11); BUN 12 mg/dL (7-18); Bilirubin, Total 0.5 mg/dL (0.2-1.0); CO2 26.3 mmol/L (21.0-32.0); Calcium 8.9 mg/dL (8.5-10.1); Chloride 103 mmol/L (98-107); Estimated GFR 115.65 (mL/min/1.73m2); Glucose 86 mg/dL (74-106); Magnesium 2.2 mg/dL (1.8-2.4); Potassium 4.0 mmol/L (3.5-5.1); Sodium 137 mmol/L (136-145); Total Protein 9.0 g/dL (6.4-8.2)
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
[2025-03-10] MEDS: HYDROmorphone 2 MG/ML SYR 0.5 MG IVP (13:51)
[2025-03-10] MEDS: Acetaminophen 500 MG TAB 1000 MG PO (13:52)
[2025-03-10 14:20] VITALS: BP 130/80; PULSE 127; O2SAT 99
== END 2025-03-10 14:35 | disposition home or self-care (01) ==
PROVIDERS: Emergency Provider Emergency Medicine; PCP Family Medicine
DX: L03.315 Cellulitis of perineum (principal); L73.2 Hidradenitis suppurativa; E11.9 Type 2 diabetes mellitus without complications; F17.290 Nicotine dependence, other tobacco product, uncomplicated
CPT/HCPCS: 80053; 87040; 96374; 99283; 72193; 83605; 83735; 85025; J1171; J3490

== ENCOUNTER 2025-05-09 23:44 | Emergency (ER) | payer SELFPAY ==
[2025-05-09 23:48] VITALS: BP 141/89; PULSE 75; RESP 16; TEMP 36.4; O2SAT 99
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
[2025-05-10] MEDS: Ketorolac 30 MG/ML VIAL IM (00:25)
[2025-05-10] MEDS: MORPHine IR 15 MG TAB PO (00:25)
[2025-05-10] MEDS: Acetaminophen 500 MG TAB 1000 MG PO (00:25)
[2025-05-10 00:35] VITALS: RESP 14
== END 2025-05-10 00:32 | disposition home or self-care (01) ==
PROVIDERS: Emergency Provider Student in an Organized Health Care Education/Training Program; PCP Family Medicine
DX: L02.31 Cutaneous abscess of buttock (principal); L02.416 Cutaneous abscess of left lower limb; L02.412 Cutaneous abscess of left axilla
CPT/HCPCS: 99283; 99284; 96372; 87077; 87070; 87186; 87205; J1885